=== PATIENT | female | born 1930 | race Caucasian/White ===

== ENCOUNTER 2017-09-23 01:52 | Inpatient (IN) | payer MEDICARE, OTHER ==
[2017-09-23] MEDS: SOD CHLORIDE 0.9% 500 ML IV (02:30)
[2017-09-23 03:37] LABS: ADD MAN DIFF? NO
[2017-09-23 03:59] LABS: WHITE BLOOD COUNT 11.1 10^3/ul (4.8-10.8)
[2017-09-23 03:59] LABS: BASOPHIL # 0.1 10^3/ul (0.0-0.1); BASOPHILS % 0.7 % (0.0-2.0); HEMATOCRIT 25.8 % (37.0-47.0); HEMOGLOBIN 8.6 g/dl (12.0-16.0); LYMPHOCYTES # 1.6 10^3/ul (0.8-2.9); LYMPHOCYTES % 14.8 % (15.0-51.0); MEAN CORPUSCULAR HEMOGLOBIN 31.4 pg (29.0-33.0); MEAN CORPUSCULAR HGB CONC 33.3 g/dl (32.0-37.0); MEAN CORPUSCULAR VOLUME 94.2 fl (82.0-101.0); MEAN PLATELET VOLUME 10.4 fl (7.4-10.4); MONOCYTE # 1.1 10^3/ul (0.3-0.9); MONOCYTES % 9.6 % (0.0-11.0); NEUTROPHIL # 8.2 10^3/ul (1.6-7.5); NEUTROPHILS % 74.4 % (39.0-77.0); PLATELET COUNT 396 10^3/UL (140-415); RED BLOOD COUNT 2.74 10^6/ul (4.20-5.40); RED CELL DISTRIBUTION WIDTH 15.5 % (11.5-14.5)
[2017-09-23 04:12] LABS: ALANINE AMINOTRANSFERASE 41 IU/L (13-69); ALBUMIN/GLOBULIN RATIO 0.88; ALKALINE PHOSPHATASE 71 IU/L (42-121); ASPARTATE AMINO TRANSFERASE 29 IU/L (15-46); BILIRUBIN,INDIRECT 0.2 mg/dl (0-1.1); BILIRUBIN,TOTAL 0.2 mg/dl (0.2-1.3); BLOOD UREA NITROGEN 30 mg/dl (7-20); CALCIUM 7.9 mg/dl (8.4-10.2); CHLORIDE 103 mmol/L (97-110); CREATININE 0.73 mg/dl (0.44-1.00); GLUCOSE 123 mg/dl (70-220); LIPASE 60 U/L (23-300); SODIUM 156 mmol/L (135-144); TOTAL PROTEIN 6.4 g/dl (6.1-8.1)
[2017-09-23 04:19] LABS: ADD UMIC YES; UR ASCORBIC ACID 40 mg/dL (NEGATIVE); UR BILIRUBIN (Dip) NEGATIVE (NEGATIVE); UR BLOOD (Dip) NEGATIVE (NEGATIVE); UR CLARITY SLIGHTLY CLOUDY (CLEAR); UR COLOR YELLOW (YELLOW); UR GLUCOSE (Dip) NEGATIVE (NEGATIVE); UR KETONES (Dip) NEGATIVE (NEGATIVE); UR LEUKOCYTE ESTERASE (Dip) NEGATIVE Leu/ul (NEGATIVE); UR NITRITE (Dip) NEGATIVE (NEGATIVE); UR RBC 1 /HPF (0-5); UR SPECIFIC GRAVITY (Dip) 1.021 (1.003-1.030); UR SQUAMOUS EPITHELIAL CELL FEW /HPF (FEW); UR TOTAL PROTEIN (Dip) 1+ mg/dl (NEGATIVE); UR UROBILINOGEN (Dip) 1+ mg/dL (NEGATIVE); UR WBC 4 /HPF (0-5)
[2017-09-23 04:26] LABS: ANION GAP 14 (8-16)
[2017-09-23 04:28] LABS: CARBON DIOXIDE 41 mmol/L (21-31); POTASSIUM 1.8 mmol/L (3.5-5.1)
[2017-09-23] MEDS ORDERED: POTASSIUM CHLORIDE (SR) 20 MEQ TAB PO (04:38)
[2017-09-23] MEDS ORDERED: ONDANSETRON 4 MG INJ IV (05:00)
[2017-09-23] MEDS ORDERED: ACETAMINOPHEN 325 MG TAB PO (05:00)
[2017-09-23] MEDS: MAGNESIUM SULFATE 2 GM/50 ML 50 ML IVPB (05:03)
[2017-09-23] MEDS: SOD CHLORIDE 0.9% 1,000 ML IV (05:03)
[2017-09-23] MEDS: POTASSIUM CHLORIDE 20 MEQ POWDER FOR ORAL SOLN GTB (05:03)
[2017-09-23] MEDS: POTASSIUM CHLORIDE 50 ML IVPB ×5 (05:27→17:30)
[2017-09-23] MEDS: ACETAMINOPHEN 325 MG TAB GTB ×2 (13:30→21:00)
[2017-09-23] MEDS: D5W + KCL 20 MEQ 1,000 ML IV (14:00)
[2017-09-23 14:41] LABS: AMMONIA < 9 umol/l (9-30)
[2017-09-23 14:41] LABS: ANION GAP 13 (8-16); BLOOD UREA NITROGEN 28 mg/dl (7-20); CALCIUM 7.5 mg/dl (8.4-10.2); CARBON DIOXIDE 36 mmol/L (21-31); CHLORIDE 109 mmol/L (97-110); CREATININE 0.66 mg/dl (0.44-1.00); GLUCOSE 105 mg/dl (70-220); SODIUM 155 mmol/L (135-144)
[2017-09-23 14:45] LABS: POTASSIUM 2.9 mmol/L (3.5-5.1)
[2017-09-23 17:48] LABS: ANION GAP 9 (8-16); BLOOD UREA NITROGEN 28 mg/dl (7-20); CALCIUM 7.7 mg/dl (8.4-10.2); CARBON DIOXIDE 38 mmol/L (21-31); CHLORIDE 110 mmol/L (97-110); CREATININE 0.58 mg/dl (0.44-1.00); GLUCOSE 96 mg/dl (70-220); SODIUM 154 mmol/L (135-144)
[2017-09-23 17:51] LABS: POTASSIUM 2.7 mmol/L (3.5-5.1)
[2017-09-23] MEDS: FERROUS SULFATE (EC) 325 MG TAB PO (21:00)
[2017-09-23] MEDS: DOCUSATE SODIUM 100 MG CAP PO (21:00)
[2017-09-23] MEDS: ASCORBIC ACID 500 MG TAB GTB (21:00)
[2017-09-23] MEDS: ATORVASTATIN 40 MG TAB GTB (21:00)
[2017-09-23] MEDS ORDERED: VITAMIN A & D 5 GM OINT PACKET TOP (23:33)
[2017-09-24] MEDS: ACETAMINOPHEN 325 MG TAB GTB ×4 (01:30→21:35)
[2017-09-24] MEDS: D5W + KCL 20 MEQ 1,000 ML IV ×3 (04:20→21:36)
[2017-09-24] MEDS: LEVOTHYROXINE 25 MCG TAB PO (05:50)
[2017-09-24 07:30] LABS: ALANINE AMINOTRANSFERASE 36 IU/L (13-69); ALBUMIN 2.6 g/dl (3.3-4.9); ALBUMIN/GLOBULIN RATIO 0.76; ALKALINE PHOSPHATASE 62 IU/L (42-121); ANION GAP 13 (8-16); ASPARTATE AMINO TRANSFERASE 27 IU/L (15-46); BILIRUBIN,INDIRECT 0.3 mg/dl (0-1.1); BILIRUBIN,TOTAL 0.3 mg/dl (0.2-1.3); BLOOD UREA NITROGEN 26 mg/dl (7-20); CALCIUM 7.8 mg/dl (8.4-10.2); CARBON DIOXIDE 34 mmol/L (21-31); CHLORIDE 109 mmol/L (97-110); CREATININE 0.62 mg/dl (0.44-1.00); GLUCOSE 115 mg/dl (70-220); MAGNESIUM 2.9 mg/dl (1.7-2.5); SODIUM 153 mmol/L (135-144)
[2017-09-24 07:42] LABS: POTASSIUM 2.9 mmol/L (3.5-5.1)
[2017-09-24] MEDS: POTASSIUM CHLORIDE 20 MEQ POWDER FOR ORAL SOLN GTB (08:00)
[2017-09-24] MEDS: MULTIVITAMINS THERAPEUTIC TAB GTB (09:00)
[2017-09-24] MEDS: CHOLECALCIFEROL 2,000 UNIT CAP PO (09:00)
[2017-09-24] MEDS: DOCUSATE SODIUM 100 MG CAP PO ×3 (09:00→21:35)
[2017-09-24] MEDS: FERROUS SULFATE (EC) 325 MG TAB PO ×2 (09:00→21:34)
[2017-09-24] MEDS: MEMANTINE 5 MG TAB PO (09:00)
[2017-09-24] MEDS: ZINC SULFATE 220 MG CAP GTB (09:00)
[2017-09-24] MEDS: DONEPEZIL 5 MG TAB PO (09:00)
[2017-09-24] MEDS: ASCORBIC ACID 500 MG TAB GTB ×2 (09:00→21:35)
[2017-09-24] MEDS: POTASSIUM CHLORIDE 20 MEQ POWDER FOR ORAL SOLN NGT (10:17)
[2017-09-24] MEDS: POTASSIUM CHLORIDE 10 MEQ in DEXTROSE 5% 50 ML IVPB ×6 (11:43→19:02)
[2017-09-24] MEDS: morphine 2 MG INJ IV (14:41)
[2017-09-24 21:06] LABS: ANION GAP 10 (8-16); BLOOD UREA NITROGEN 26 mg/dl (7-20); CALCIUM 7.6 mg/dl (8.4-10.2); CARBON DIOXIDE 32 mmol/L (21-31); CHLORIDE 109 mmol/L (97-110); GLUCOSE 85 mg/dl (70-220); POTASSIUM 3.9 mmol/L (3.5-5.1); SODIUM 147 mmol/L (135-144)
[2017-09-24] MEDS: ATORVASTATIN 40 MG TAB GTB (21:35)
[2017-09-25] MEDS: ACETAMINOPHEN 325 MG TAB GTB ×4 (01:30→21:47)
[2017-09-25] MEDS: LEVOTHYROXINE 25 MCG TAB PO (05:22)
[2017-09-25] MEDS: D5W + KCL 20 MEQ 1,000 ML IV ×2 (06:00→08:28)
[2017-09-25 07:03] LABS: ADD MAN DIFF? NO
[2017-09-25 07:07] LABS: BASOPHIL # 0.1 10^3/ul (0.0-0.1); BASOPHILS % 0.4 % (0.0-2.0); HEMOGLOBIN 8.9 g/dl (12.0-16.0); LYMPHOCYTES # 2.2 10^3/ul (0.8-2.9); LYMPHOCYTES % 15.7 % (15.0-51.0); MEAN CORPUSCULAR HEMOGLOBIN 30.6 pg (29.0-33.0); MEAN CORPUSCULAR HGB CONC 31.8 g/dl (32.0-37.0); MEAN CORPUSCULAR VOLUME 96.2 fl (82.0-101.0); MEAN PLATELET VOLUME 10.4 fl (7.4-10.4); MONOCYTE # 0.8 10^3/ul (0.3-0.9); MONOCYTES % 5.5 % (0.0-11.0); NEUTROPHIL # 10.7 10^3/ul (1.6-7.5); PLATELET COUNT 399 10^3/UL (140-415); RED BLOOD COUNT 2.91 10^6/ul (4.20-5.40); RED CELL DISTRIBUTION WIDTH 14.7 % (11.5-14.5)
[2017-09-25 07:07] LABS: WHITE BLOOD COUNT 13.7 10^3/ul (4.8-10.8)
[2017-09-25 08:06] LABS: ANION GAP 12 (8-16); BLOOD UREA NITROGEN 26 mg/dl (7-20); CALCIUM 7.5 mg/dl (8.4-10.2); CARBON DIOXIDE 29 mmol/L (21-31); CHLORIDE 107 mmol/L (97-110); CREATININE 0.59 mg/dl (0.44-1.00); GLUCOSE 105 mg/dl (70-220); POTASSIUM 3.3 mmol/L (3.5-5.1); SODIUM 145 mmol/L (135-144)
[2017-09-25] MEDS: CHOLECALCIFEROL 2,000 UNIT CAP PO (08:26)
[2017-09-25] MEDS: ZINC SULFATE 220 MG CAP GTB (08:27)
[2017-09-25] MEDS: MEMANTINE 5 MG TAB PO (08:27)
[2017-09-25] MEDS: DOCUSATE SODIUM 100 MG CAP PO ×2 (08:27→21:00)
[2017-09-25] MEDS: FERROUS SULFATE (EC) 325 MG TAB PO ×2 (08:27→21:47)
[2017-09-25] MEDS: MULTIVITAMINS THERAPEUTIC TAB GTB (08:27)
[2017-09-25] MEDS: DONEPEZIL 5 MG TAB PO (08:27)
[2017-09-25] MEDS: ASCORBIC ACID 500 MG TAB GTB ×2 (08:27→21:47)
[2017-09-25] MEDS: POTASSIUM CHLORIDE (SR) 20 MEQ TAB PO (12:13)
[2017-09-25] MEDS: ATORVASTATIN 40 MG TAB GTB (21:47)
[2017-09-26] MEDS: D5W + KCL 20 MEQ 1,000 ML IV ×2 (00:18→13:46)
[2017-09-26] MEDS: LEVOTHYROXINE 25 MCG TAB PO (05:01)
[2017-09-26] MEDS: ACETAMINOPHEN 325 MG TAB GTB ×4 (05:01→21:20)
[2017-09-26] MEDS: MULTIVITAMINS THERAPEUTIC TAB GTB (08:30)
[2017-09-26] MEDS: FERROUS SULFATE (EC) 325 MG TAB PO ×2 (08:30→21:20)
[2017-09-26] MEDS: DONEPEZIL 5 MG TAB PO (08:30)
[2017-09-26] MEDS: CHOLECALCIFEROL 2,000 UNIT CAP PO (08:30)
[2017-09-26] MEDS: MEMANTINE 5 MG TAB PO (08:31)
[2017-09-26] MEDS: ZINC SULFATE 220 MG CAP GTB (08:31)
[2017-09-26] MEDS: DOCUSATE SODIUM 100 MG CAP PO ×2 (08:31→21:20)
[2017-09-26] MEDS: ASCORBIC ACID 500 MG TAB GTB ×2 (08:31→21:20)
[2017-09-26 08:57] LABS: ADD MAN DIFF? NO
[2017-09-26 09:16] LABS: BASOPHILS % 0.2 % (0.0-2.0); HEMATOCRIT 28.1 % (37.0-47.0); LYMPHOCYTES # 1.8 10^3/ul (0.8-2.9); LYMPHOCYTES % 17.7 % (15.0-51.0); MEAN CORPUSCULAR HEMOGLOBIN 30.4 pg (29.0-33.0); MEAN CORPUSCULAR VOLUME 94.9 fl (82.0-101.0); MEAN PLATELET VOLUME 10.3 fl (7.4-10.4); MONOCYTE # 0.6 10^3/ul (0.3-0.9); NEUTROPHIL # 7.7 10^3/ul (1.6-7.5); NEUTROPHILS % 75.6 % (39.0-77.0); PLATELET COUNT 404 10^3/UL (140-415); RED BLOOD COUNT 2.96 10^6/ul (4.20-5.40); RED CELL DISTRIBUTION WIDTH 14.6 % (11.5-14.5)
[2017-09-26 09:16] LABS: WHITE BLOOD COUNT 10.2 10^3/ul (4.8-10.8)
[2017-09-26 09:26] LABS: ANION GAP 12 (8-16); BLOOD UREA NITROGEN 17 mg/dl (7-20); CALCIUM 7.9 mg/dl (8.4-10.2); CARBON DIOXIDE 30 mmol/L (21-31); CHLORIDE 103 mmol/L (97-110); CREATININE 0.65 mg/dl (0.44-1.00); GLUCOSE 85 mg/dl (70-220); POTASSIUM 3.1 mmol/L (3.5-5.1); SODIUM 142 mmol/L (135-144)
[2017-09-26] MEDS ORDERED: POTASSIUM CHLORIDE 20 MEQ in DEXTROSE 5% 100 ML IVPB (15:30)
[2017-09-26] MEDS: POTASSIUM CHLORIDE 50 ML IVPB ×2 (15:33→18:45)
[2017-09-26] MEDS: ATORVASTATIN 40 MG TAB GTB (21:20)
[2017-09-26] MEDS: morphine 2 MG INJ IV (23:53)
[2017-09-27] MEDS: ACETAMINOPHEN 325 MG TAB GTB ×4 (03:25→18:10)
[2017-09-27] MEDS: D5W + KCL 20 MEQ 1,000 ML IV ×3 (06:46→18:10)
[2017-09-27] MEDS: LEVOTHYROXINE 25 MCG TAB PO (06:46)
[2017-09-27] MEDS: DONEPEZIL 5 MG TAB PO (09:11)
[2017-09-27] MEDS: ZINC SULFATE 220 MG CAP GTB (09:11)
[2017-09-27] MEDS: FERROUS SULFATE (EC) 325 MG TAB PO ×2 (09:11→20:54)
[2017-09-27] MEDS: CHOLECALCIFEROL 2,000 UNIT CAP PO (09:12)
[2017-09-27] MEDS: MULTIVITAMINS THERAPEUTIC TAB GTB (09:12)
[2017-09-27] MEDS: DOCUSATE SODIUM 100 MG CAP PO ×2 (09:12→20:54)
[2017-09-27] MEDS: MEMANTINE 5 MG TAB PO (09:13)
[2017-09-27] MEDS: ASCORBIC ACID 500 MG TAB GTB ×2 (09:13→20:54)
[2017-09-27] MEDS ORDERED: POTASSIUM CHLORIDE 20 MEQ in DEXTROSE 5% 100 ML IVPB (09:30)
[2017-09-27] MEDS: POTASSIUM CHLORIDE 50 ML IVPB ×2 (11:00→12:34)
[2017-09-27] MEDS: ATORVASTATIN 40 MG TAB GTB (20:54)
[2017-09-28] MEDS: ACETAMINOPHEN 325 MG TAB GTB ×4 (01:09→18:28)
[2017-09-28] MEDS: D5W + KCL 20 MEQ 1,000 ML IV ×2 (04:00→13:37)
[2017-09-28] MEDS: LEVOTHYROXINE 25 MCG TAB PO (06:31)
[2017-09-28] MEDS: CHOLECALCIFEROL 2,000 UNIT CAP PO (08:43)
[2017-09-28] MEDS: MEMANTINE 5 MG TAB PO (08:43)
[2017-09-28] MEDS: DONEPEZIL 5 MG TAB PO (08:43)
[2017-09-28] MEDS: MULTIVITAMINS THERAPEUTIC TAB GTB (08:43)
[2017-09-28] MEDS: FERROUS SULFATE (EC) 325 MG TAB PO ×2 (08:43→20:11)
[2017-09-28] MEDS: DOCUSATE SODIUM 100 MG CAP PO ×2 (08:43→21:00)
[2017-09-28] MEDS: ZINC SULFATE 220 MG CAP GTB (08:43)
[2017-09-28] MEDS: ASCORBIC ACID 500 MG TAB GTB ×2 (08:43→20:11)
[2017-09-28] MEDS ORDERED: POTASSIUM CHLORIDE 30 MEQ in DEXTROSE 5% 250 ML IVPB (15:00)
[2017-09-28] MEDS: POTASSIUM CHLORIDE 50 ML IVPB ×3 (15:27→18:28)
[2017-09-28] MEDS ORDERED: PEG/ELECTROLYTES 4L BTL PEG (15:30)
[2017-09-28 16:28] LABS: ADD MAN DIFF? NO
[2017-09-28 16:32] LABS: WHITE BLOOD COUNT 8.3 10^3/ul (4.8-10.8)
[2017-09-28 16:32] LABS: BASOPHILS % 0.4 % (0.0-2.0); HEMATOCRIT 26.2 % (37.0-47.0); HEMOGLOBIN 8.4 g/dl (12.0-16.0); LYMPHOCYTES % 24.1 % (15.0-51.0); MEAN CORPUSCULAR HEMOGLOBIN 30.7 pg (29.0-33.0); MEAN CORPUSCULAR HGB CONC 32.1 g/dl (32.0-37.0); MEAN CORPUSCULAR VOLUME 95.6 fl (82.0-101.0); MEAN PLATELET VOLUME 10.5 fl (7.4-10.4); MONOCYTE # 0.5 10^3/ul (0.3-0.9); MONOCYTES % 6.4 % (0.0-11.0); NEUTROPHIL # 5.7 10^3/ul (1.6-7.5); NEUTROPHILS % 68.9 % (39.0-77.0); PLATELET COUNT 302 10^3/UL (140-415); RED BLOOD COUNT 2.74 10^6/ul (4.20-5.40); RED CELL DISTRIBUTION WIDTH 15.9 % (11.5-14.5)
[2017-09-28 16:59] LABS: ANION GAP 13 (8-16); BLOOD UREA NITROGEN 13 mg/dl (7-20); CALCIUM 8.1 mg/dl (8.4-10.2); CARBON DIOXIDE 28 mmol/L (21-31); CHLORIDE 106 mmol/L (97-110); CREATININE 0.69 mg/dl (0.44-1.00); GLUCOSE 90 mg/dl (70-220); POTASSIUM 3.6 mmol/L (3.5-5.1); SODIUM 143 mmol/L (135-144)
[2017-09-28] MEDS: PEG/ELECTROLYTES 4L BTL PO (17:01)
[2017-09-28] MEDS: D5W-0.45 NACL + KCL 20 MEQ 1,000 ML IV (17:32)
[2017-09-28] MEDS: ATORVASTATIN 40 MG TAB GTB (20:11)
[2017-09-29] MEDS: ACETAMINOPHEN 325 MG TAB GTB ×4 (02:16→18:23)
[2017-09-29 04:13] LABS: ADD MAN DIFF? NO
[2017-09-29 04:40] LABS: BASOPHILS % 0.4 % (0.0-2.0); HEMATOCRIT 26.1 % (37.0-47.0); HEMOGLOBIN 8.4 g/dl (12.0-16.0); LYMPHOCYTES # 2.2 10^3/ul (0.8-2.9); LYMPHOCYTES % 23.4 % (15.0-51.0); MEAN CORPUSCULAR HEMOGLOBIN 30.5 pg (29.0-33.0); MEAN CORPUSCULAR HGB CONC 32.2 g/dl (32.0-37.0); MEAN CORPUSCULAR VOLUME 94.9 fl (82.0-101.0); MEAN PLATELET VOLUME 10.2 fl (7.4-10.4); MONOCYTE # 0.7 10^3/ul (0.3-0.9); NEUTROPHIL # 6.4 10^3/ul (1.6-7.5); PLATELET COUNT 338 10^3/UL (140-415); RED BLOOD COUNT 2.75 10^6/ul (4.20-5.40); RED CELL DISTRIBUTION WIDTH 15.2 % (11.5-14.5)
[2017-09-29 04:40] LABS: WHITE BLOOD COUNT 9.3 10^3/ul (4.8-10.8)
[2017-09-29 04:49] LABS: POTASSIUM 3.8 mmol/L (3.5-5.1)
[2017-09-29 04:51] LABS: INR 0.98; PROTIME 13.1 Sec (11.9-14.9)
[2017-09-29 04:52] LABS: PARTIAL THROMBOPLASTIN TIME 36.8 Sec (25.0-35.0)
[2017-09-29 04:53] LABS: ALANINE AMINOTRANSFERASE 124 IU/L (13-69); ALBUMIN 2.5 g/dl (3.3-4.9); ALBUMIN/GLOBULIN RATIO 0.78; ALKALINE PHOSPHATASE 238 IU/L (42-121); ANION GAP 13 (8-16); ASPARTATE AMINO TRANSFERASE 62 IU/L (15-46); BILIRUBIN,INDIRECT 0.2 mg/dl (0-1.1); BILIRUBIN,TOTAL 0.2 mg/dl (0.2-1.3); BLOOD UREA NITROGEN 13 mg/dl (7-20); CALCIUM 7.7 mg/dl (8.4-10.2); CARBON DIOXIDE 28 mmol/L (21-31); CHLORIDE 106 mmol/L (97-110); CREATININE 0.63 mg/dl (0.44-1.00); GLUCOSE 86 mg/dl (70-220); SODIUM 143 mmol/L (135-144); TOTAL PROTEIN 5.7 g/dl (6.1-8.1)
[2017-09-29] MEDS: D5W-0.45 NACL + KCL 20 MEQ 1,000 ML IV (05:19)
[2017-09-29] MEDS: LEVOTHYROXINE 25 MCG TAB PO (06:22)
[2017-09-29] MEDS: DOCUSATE SODIUM 100 MG CAP PO ×2 (08:54→21:01)
[2017-09-29] MEDS: ASCORBIC ACID 500 MG TAB GTB ×2 (08:54→21:01)
[2017-09-29] MEDS: ZINC SULFATE 220 MG CAP GTB (08:54)
[2017-09-29] MEDS: DONEPEZIL 5 MG TAB PO (08:54)
[2017-09-29] MEDS: MULTIVITAMINS THERAPEUTIC TAB GTB (08:54)
[2017-09-29] MEDS: MEMANTINE 5 MG TAB PO (08:55)
[2017-09-29] MEDS: CHOLECALCIFEROL 2,000 UNIT CAP PO (08:55)
[2017-09-29] MEDS: FERROUS SULFATE (EC) 325 MG TAB PO ×2 (08:55→21:01)
[2017-09-29] MEDS: LIDOCAINE 100 MG SYRINGE (18:05)
[2017-09-29] MEDS: PROPOFOL 40 ML (18:05)
[2017-09-29] MEDS: ATORVASTATIN 40 MG TAB GTB (21:01)
[2017-09-30] MEDS: ACETAMINOPHEN 325 MG TAB GTB ×4 (01:24→20:36)
[2017-09-30] MEDS: LEVOTHYROXINE 25 MCG TAB PO (06:32)
[2017-09-30] MEDS: ASCORBIC ACID 500 MG TAB GTB ×2 (08:42→20:36)
[2017-09-30] MEDS: DOCUSATE SODIUM 100 MG CAP PO ×2 (08:43→20:36)
[2017-09-30] MEDS: FERROUS SULFATE (EC) 325 MG TAB PO ×2 (08:43→20:36)
[2017-09-30] MEDS: MEMANTINE 5 MG TAB PO (08:43)
[2017-09-30] MEDS: DONEPEZIL 5 MG TAB PO (08:47)
[2017-09-30] MEDS: ZINC SULFATE 220 MG CAP GTB (08:47)
[2017-09-30] MEDS: MULTIVITAMINS THERAPEUTIC TAB GTB (08:48)
[2017-09-30] MEDS: CHOLECALCIFEROL 1,000 UNIT TAB GTB (13:38)
[2017-09-30] MEDS: ATORVASTATIN 40 MG TAB GTB (20:36)
[2017-10-01] MEDS: ACETAMINOPHEN 325 MG TAB GTB ×4 (01:40→18:38)
[2017-10-01 05:23] LABS: ADD MAN DIFF? NO
[2017-10-01 05:31] LABS: WHITE BLOOD COUNT 8.8 10^3/ul (4.8-10.8)
[2017-10-01 05:31] LABS: BASOPHILS % 0.2 % (0.0-2.0); HEMATOCRIT 25.7 % (37.0-47.0); HEMOGLOBIN 8.3 g/dl (12.0-16.0); LYMPHOCYTES # 1.9 10^3/ul (0.8-2.9); MEAN CORPUSCULAR HEMOGLOBIN 30.4 pg (29.0-33.0); MEAN CORPUSCULAR HGB CONC 32.3 g/dl (32.0-37.0); MEAN CORPUSCULAR VOLUME 94.1 fl (82.0-101.0); MEAN PLATELET VOLUME 10.1 fl (7.4-10.4); MONOCYTE # 0.8 10^3/ul (0.3-0.9); MONOCYTES % 9.2 % (0.0-11.0); NEUTROPHIL # 6.1 10^3/ul (1.6-7.5); NEUTROPHILS % 69.4 % (39.0-77.0); PLATELET COUNT 318 10^3/UL (140-415); RED BLOOD COUNT 2.73 10^6/ul (4.20-5.40); RED CELL DISTRIBUTION WIDTH 15.1 % (11.5-14.5)
[2017-10-01 06:01] LABS: ANION GAP 14 (8-16); BLOOD UREA NITROGEN 14 mg/dl (7-20); CALCIUM 8.2 mg/dl (8.4-10.2); CARBON DIOXIDE 28 mmol/L (21-31); CHLORIDE 105 mmol/L (97-110); CREATININE 0.63 mg/dl (0.44-1.00); GLUCOSE 94 mg/dl (70-220); POTASSIUM 3.3 mmol/L (3.5-5.1); SODIUM 144 mmol/L (135-144)
[2017-10-01] MEDS: morphine 2 MG INJ IV (06:06)
[2017-10-01] MEDS: MULTIVITAMINS THERAPEUTIC TAB GTB (09:36)
[2017-10-01] MEDS: FERROUS SULFATE (EC) 325 MG TAB PO ×2 (09:37→20:57)
[2017-10-01] MEDS: CHOLECALCIFEROL 1,000 UNIT TAB GTB (09:37)
[2017-10-01] MEDS: DONEPEZIL 5 MG TAB PO (09:38)
[2017-10-01] MEDS: ZINC SULFATE 220 MG CAP GTB (09:38)
[2017-10-01] MEDS: LEVOTHYROXINE 25 MCG TAB PO (09:38)
[2017-10-01] MEDS: DOCUSATE SODIUM 100 MG CAP PO ×2 (09:38→21:00)
[2017-10-01] MEDS: ASCORBIC ACID 500 MG TAB GTB ×2 (09:38→20:57)
[2017-10-01] MEDS: MEMANTINE 5 MG TAB PO (09:38)
[2017-10-01] MEDS: ATORVASTATIN 40 MG TAB GTB (20:57)
[2017-10-02] MEDS: ACETAMINOPHEN 325 MG TAB GTB ×3 (02:35→13:34)
[2017-10-02 07:04] LABS: ANION GAP 14 (8-16); BLOOD UREA NITROGEN 14 mg/dl (7-20); CALCIUM 7.7 mg/dl (8.4-10.2); CARBON DIOXIDE 27 mmol/L (21-31); CHLORIDE 105 mmol/L (97-110); GLUCOSE 114 mg/dl (70-220); POTASSIUM 3.3 mmol/L (3.5-5.1); SODIUM 143 mmol/L (135-144)
[2017-10-02] MEDS: MEMANTINE 5 MG TAB PO (08:44)
[2017-10-02] MEDS: ASCORBIC ACID 500 MG TAB GTB ×2 (08:44→20:23)
[2017-10-02] MEDS: CHOLECALCIFEROL 1,000 UNIT TAB GTB (08:44)
[2017-10-02] MEDS: MULTIVITAMINS THERAPEUTIC TAB GTB (08:44)
[2017-10-02] MEDS: DONEPEZIL 5 MG TAB PO (08:45)
[2017-10-02] MEDS: DOCUSATE SODIUM 100 MG CAP PO (08:46)
[2017-10-02] MEDS: LEVOTHYROXINE 25 MCG TAB PO (08:46)
[2017-10-02] MEDS: FERROUS SULFATE (EC) 325 MG TAB PO (08:46)
[2017-10-02] MEDS: ZINC SULFATE 220 MG CAP GTB (08:46)
[2017-10-02] MEDS: POTASSIUM CHLORIDE (SR) 20 MEQ TAB PO (16:57)
[2017-10-02] MEDS: POTASSIUM CHLORIDE 20 MEQ POWDER FOR ORAL SOLN GTB (17:25)
[2017-10-02 17:33] LABS: ADD MAN DIFF? NO
[2017-10-02 17:36] LABS: WHITE BLOOD COUNT 9.7 10^3/ul (4.8-10.8)
[2017-10-02 17:36] LABS: BASOPHILS % 0.4 % (0.0-2.0); HEMATOCRIT 24.9 % (37.0-47.0); HEMOGLOBIN 8.1 g/dl (12.0-16.0); LYMPHOCYTES # 1.5 10^3/ul (0.8-2.9); LYMPHOCYTES % 15.9 % (15.0-51.0); MEAN CORPUSCULAR HEMOGLOBIN 30.7 pg (29.0-33.0); MEAN CORPUSCULAR HGB CONC 32.5 g/dl (32.0-37.0); MEAN CORPUSCULAR VOLUME 94.3 fl (82.0-101.0); MONOCYTE # 0.9 10^3/ul (0.3-0.9); MONOCYTES % 9.4 % (0.0-11.0); NEUTROPHIL # 7.2 10^3/ul (1.6-7.5); PLATELET COUNT 246 10^3/UL (140-415); RED BLOOD COUNT 2.64 10^6/ul (4.20-5.40); RED CELL DISTRIBUTION WIDTH 15.2 % (11.5-14.5)
[2017-10-02] MEDS: FERROUS SULFATE 60 MG/ML 5ML CUP GTB (20:23)
[2017-10-02] MEDS: ATORVASTATIN 40 MG TAB GTB (20:23)
[2017-10-02] MEDS: DOCUSATE SODIUM 10 MG/ML (10ML CUP) GTB (20:23)
[2017-10-02] MEDS: SOD CHLORIDE 0.9% 1,000 ML IV (21:29)
[2017-10-03] MEDS: LEVOTHYROXINE 25 MCG TAB PO (04:23)
[2017-10-03] MEDS: MULTIVITAMINS THERAPEUTIC TAB GTB (08:18)
[2017-10-03] MEDS: DOCUSATE SODIUM 10 MG/ML (10ML CUP) GTB ×2 (08:18→21:00)
[2017-10-03] MEDS: FERROUS SULFATE 60 MG/ML 5ML CUP GTB ×2 (08:18→21:00)
[2017-10-03] MEDS: CHOLECALCIFEROL 1,000 UNIT TAB GTB (08:18)
[2017-10-03] MEDS: ASCORBIC ACID 500 MG TAB GTB ×2 (08:18→21:00)
[2017-10-03] MEDS: ZINC SULFATE 220 MG CAP GTB (08:19)
[2017-10-03] MEDS: MEMANTINE 5 MG TAB PO (08:19)
[2017-10-03] MEDS: DONEPEZIL 5 MG TAB PO (08:19)
[2017-10-03] MEDS: SOD CHLORIDE 0.9% 1,000 ML IV (10:32)
[2017-10-03 12:34] LABS: ANION GAP 12 (8-16); BLOOD UREA NITROGEN 13 mg/dl (7-20); CALCIUM 7.7 mg/dl (8.4-10.2); CARBON DIOXIDE 27 mmol/L (21-31); CHLORIDE 106 mmol/L (97-110); CREATININE 0.61 mg/dl (0.44-1.00); GLUCOSE 75 mg/dl (70-220); POTASSIUM 3.6 mmol/L (3.5-5.1); SODIUM 141 mmol/L (135-144)
[2017-10-03] MEDS: ATORVASTATIN 40 MG TAB GTB (21:00)
[2017-10-03] MEDS: POTASSIUM CHLORIDE 10 MEQ in SOD CHLORIDE 0.9% 1,000 ML IV (21:33)
[2017-10-03] MEDS: D5W-0.45 NACL + KCL 20 MEQ 1,000 ML IV (23:21)
[2017-10-04] MEDS: LEVOTHYROXINE 25 MCG TAB PO (06:25)
[2017-10-04 07:08] LABS: ANION GAP 12 (8-16); BLOOD UREA NITROGEN 13 mg/dl (7-20); CALCIUM 7.7 mg/dl (8.4-10.2); CARBON DIOXIDE 26 mmol/L (21-31); CHLORIDE 106 mmol/L (97-110); CREATININE 0.57 mg/dl (0.44-1.00); GLUCOSE 73 mg/dl (70-220); POTASSIUM 3.1 mmol/L (3.5-5.1); SODIUM 141 mmol/L (135-144)
[2017-10-04 07:09] LABS: MAGNESIUM 1.9 mg/dl (1.7-2.5)
[2017-10-04 07:09] LABS: PHOSPHORUS 3.8 mg/dl (2.5-4.9)
[2017-10-04] MEDS: MULTIVITAMINS THERAPEUTIC TAB GTB (08:59)
[2017-10-04] MEDS: FERROUS SULFATE 60 MG/ML 5ML CUP GTB ×2 (08:59→21:21)
[2017-10-04] MEDS: ASCORBIC ACID 500 MG TAB GTB ×2 (08:59→21:21)
[2017-10-04] MEDS: DOCUSATE SODIUM 10 MG/ML (10ML CUP) GTB ×2 (08:59→21:21)
[2017-10-04] MEDS: CHOLECALCIFEROL 1,000 UNIT TAB GTB (09:00)
[2017-10-04] MEDS: DONEPEZIL 5 MG TAB PO (09:00)
[2017-10-04] MEDS: MEMANTINE 5 MG TAB PO (09:00)
[2017-10-04] MEDS: ZINC SULFATE 220 MG CAP GTB (09:00)
[2017-10-04] MEDS: POTASSIUM CHLORIDE 10 MEQ in SOD CHLORIDE 0.9% 1,000 ML IV (10:24)
[2017-10-04] MEDS: D5W-0.45 NACL + KCL 20 MEQ 1,000 ML IV (13:00)
[2017-10-04] MEDS ORDERED: POTASSIUM CHLORIDE 30 MEQ in SOD CHLORIDE 0.9% 150 ML IVPB (15:30)
[2017-10-04] MEDS: POTASSIUM CHLORIDE 50 ML IVPB ×3 (15:39→17:30)
[2017-10-04] MEDS ORDERED: PROPOFOL 40 ML (16:27)
[2017-10-04] MEDS: ATORVASTATIN 40 MG TAB GTB (21:21)
[2017-10-04] MEDS: ACETAMINOPHEN 650MG/20.3ML CUP PO (21:21)
[2017-10-04] MEDS: morphine 2 MG INJ IV (21:58)
[2017-10-05] MEDS: D5W-0.45 NACL + KCL 20 MEQ 1,000 ML IV ×2 (03:36→13:56)
[2017-10-05] MEDS: LEVOTHYROXINE 25 MCG TAB PO (05:07)
[2017-10-05] MEDS: ASCORBIC ACID 500 MG TAB GTB ×2 (09:32→20:39)
[2017-10-05] MEDS: CHOLECALCIFEROL 1,000 UNIT TAB GTB (09:32)
[2017-10-05] MEDS: MEMANTINE 5 MG TAB PO (09:32)
[2017-10-05] MEDS: ZINC SULFATE 220 MG CAP GTB (09:32)
[2017-10-05] MEDS: DONEPEZIL 5 MG TAB PO (09:32)
[2017-10-05] MEDS: FERROUS SULFATE 60 MG/ML 5ML CUP GTB ×2 (09:32→20:39)
[2017-10-05] MEDS: DOCUSATE SODIUM 10 MG/ML (10ML CUP) GTB ×2 (09:32→20:40)
[2017-10-05] MEDS: MULTIVITAMINS THERAPEUTIC TAB GTB (09:32)
[2017-10-05] MEDS: ATORVASTATIN 40 MG TAB GTB (20:39)
[2017-10-05] MEDS: FLUOCINONIDE 0.05% 15 GM CR TOP (20:41)
[2017-10-05] MEDS: morphine 2 MG INJ IV (21:25)
[2017-10-06] MEDS: D5W-0.45 NACL + KCL 20 MEQ 1,000 ML IV ×2 (05:05→22:52)
[2017-10-06 05:36] LABS: ADD MAN DIFF? NO
[2017-10-06 05:46] LABS: BASOPHIL # 0.1 10^3/ul (0.0-0.1); BASOPHILS % 0.7 % (0.0-2.0); HEMATOCRIT 23.7 % (37.0-47.0); LYMPHOCYTES # 2.1 10^3/ul (0.8-2.9); LYMPHOCYTES % 28.3 % (15.0-51.0); MEAN CORPUSCULAR HEMOGLOBIN 30.8 pg (29.0-33.0); MEAN CORPUSCULAR HGB CONC 33.8 g/dl (32.0-37.0); MEAN CORPUSCULAR VOLUME 91.2 fl (82.0-101.0); MEAN PLATELET VOLUME 9.8 fl (7.4-10.4); MONOCYTE # 0.8 10^3/ul (0.3-0.9); MONOCYTES % 10.7 % (0.0-11.0); NEUTROPHIL # 4.4 10^3/ul (1.6-7.5); PLATELET COUNT 299 10^3/UL (140-415); RED CELL DISTRIBUTION WIDTH 14.6 % (11.5-14.5)
[2017-10-06 05:46] LABS: WHITE BLOOD COUNT 7.3 10^3/ul (4.8-10.8)
[2017-10-06 06:01] LABS: ANION GAP 12 (8-16); BLOOD UREA NITROGEN 9 mg/dl (7-20); CALCIUM 7.9 mg/dl (8.4-10.2); CARBON DIOXIDE 27 mmol/L (21-31); CHLORIDE 107 mmol/L (97-110); CREATININE 0.58 mg/dl (0.44-1.00); GLUCOSE 99 mg/dl (70-220); SODIUM 143 mmol/L (135-144)
[2017-10-06] MEDS: LEVOTHYROXINE 25 MCG TAB PO (06:02)
[2017-10-06 06:20] LABS: POTASSIUM 2.8 mmol/L (3.5-5.1)
[2017-10-06] MEDS: FERROUS SULFATE 60 MG/ML 5ML CUP GTB ×2 (08:11→20:56)
[2017-10-06] MEDS: DOCUSATE SODIUM 10 MG/ML (10ML CUP) GTB ×2 (08:11→20:56)
[2017-10-06] MEDS: POTASSIUM CHLORIDE 20 MEQ POWDER FOR ORAL SOLN GTB ×2 (08:11→11:32)
[2017-10-06] MEDS: DONEPEZIL 5 MG TAB PO (08:12)
[2017-10-06] MEDS: MEMANTINE 5 MG TAB PO (08:12)
[2017-10-06] MEDS: ASCORBIC ACID 500 MG TAB GTB ×2 (08:12→20:56)
[2017-10-06] MEDS: CHOLECALCIFEROL 1,000 UNIT TAB GTB (08:12)
[2017-10-06] MEDS: MULTIVITAMINS THERAPEUTIC TAB GTB (08:12)
[2017-10-06] MEDS: ZINC SULFATE 220 MG CAP GTB (08:12)
[2017-10-06] MEDS ORDERED: POTASSIUM CHLORIDE 20 MEQ in DEXTROSE 5% 100 ML IVPB (16:30)
[2017-10-06] MEDS: POTASSIUM CHLORIDE 50 ML IVPB ×2 (18:50→20:56)
[2017-10-06] MEDS: ATORVASTATIN 40 MG TAB GTB (20:56)
[2017-10-06] MEDS: morphine 2 MG INJ IV (22:53)
[2017-10-06] MEDS ORDERED: VITAMIN A & D 5 GM OINT PACKET TOP (23:17)
[2017-10-07 05:53] LABS: ADD MAN DIFF? NO
[2017-10-07 05:56] LABS: BASOPHIL # 0.1 10^3/ul (0.0-0.1); BASOPHILS % 0.6 % (0.0-2.0); HEMOGLOBIN 8.3 g/dl (12.0-16.0); LYMPHOCYTES % 23.2 % (15.0-51.0); MEAN CORPUSCULAR HEMOGLOBIN 30.2 pg (29.0-33.0); MEAN CORPUSCULAR HGB CONC 31.9 g/dl (32.0-37.0); MEAN CORPUSCULAR VOLUME 94.5 fl (82.0-101.0); MEAN PLATELET VOLUME 9.7 fl (7.4-10.4); MONOCYTE # 0.7 10^3/ul (0.3-0.9); MONOCYTES % 8.7 % (0.0-11.0); NEUTROPHIL # 5.7 10^3/ul (1.6-7.5); NEUTROPHILS % 67.3 % (39.0-77.0); PLATELET COUNT 300 10^3/UL (140-415); RED BLOOD COUNT 2.75 10^6/ul (4.20-5.40); RED CELL DISTRIBUTION WIDTH 14.6 % (11.5-14.5)
[2017-10-07 05:56] LABS: WHITE BLOOD COUNT 8.5 10^3/ul (4.8-10.8)
[2017-10-07] MEDS: LEVOTHYROXINE 25 MCG TAB PO (06:25)
[2017-10-07 06:26] LABS: ANION GAP 12 (8-16); BLOOD UREA NITROGEN 9 mg/dl (7-20); CALCIUM 8.3 mg/dl (8.4-10.2); CARBON DIOXIDE 27 mmol/L (21-31); CHLORIDE 107 mmol/L (97-110); CREATININE 0.53 mg/dl (0.44-1.00); GLUCOSE 121 mg/dl (70-220); POTASSIUM 4.3 mmol/L (3.5-5.1); SODIUM 142 mmol/L (135-144)
[2017-10-07 08:25] LABS: FREE T4 (FREE THYROXINE) 0.99 ng/dl (0.85-1.93)
[2017-10-07] MEDS: MEMANTINE 5 MG TAB PO (08:43)
[2017-10-07] MEDS: DOCUSATE SODIUM 10 MG/ML (10ML CUP) GTB ×2 (08:43→21:19)
[2017-10-07] MEDS: ZINC SULFATE 220 MG CAP GTB (08:43)
[2017-10-07] MEDS: MULTIVITAMINS THERAPEUTIC TAB GTB (08:43)
[2017-10-07] MEDS: DONEPEZIL 5 MG TAB PO (08:43)
[2017-10-07] MEDS: FERROUS SULFATE 60 MG/ML 5ML CUP GTB ×2 (08:43→21:19)
[2017-10-07] MEDS: CHOLECALCIFEROL 1,000 UNIT TAB GTB (08:43)
[2017-10-07] MEDS: ASCORBIC ACID 500 MG TAB GTB ×2 (08:43→21:19)
[2017-10-07] MEDS: D5W-0.45 NACL + KCL 20 MEQ 1,000 ML IV ×2 (12:48→16:02)
[2017-10-07] MEDS: morphine 2 MG INJ IV (19:53)
[2017-10-07] MEDS: ATORVASTATIN 40 MG TAB GTB (21:20)
[2017-10-08] MEDS: D5W-0.45 NACL + KCL 20 MEQ 1,000 ML IV (05:36)
[2017-10-08 05:51] LABS: ADD MAN DIFF? NO
[2017-10-08 06:01] LABS: BASOPHIL # 0.1 10^3/ul (0.0-0.1); BASOPHILS % 0.5 % (0.0-2.0); HEMATOCRIT 26.7 % (37.0-47.0); HEMOGLOBIN 8.6 g/dl (12.0-16.0); LYMPHOCYTES # 1.8 10^3/ul (0.8-2.9); LYMPHOCYTES % 16.5 % (15.0-51.0); MEAN CORPUSCULAR HEMOGLOBIN 30.5 pg (29.0-33.0); MEAN CORPUSCULAR HGB CONC 32.2 g/dl (32.0-37.0); MEAN CORPUSCULAR VOLUME 94.7 fl (82.0-101.0); MEAN PLATELET VOLUME 10.1 fl (7.4-10.4); MONOCYTE # 0.9 10^3/ul (0.3-0.9); MONOCYTES % 7.9 % (0.0-11.0); NEUTROPHIL # 8.3 10^3/ul (1.6-7.5); NEUTROPHILS % 74.8 % (39.0-77.0); PLATELET COUNT 313 10^3/UL (140-415); RED BLOOD COUNT 2.82 10^6/ul (4.20-5.40); RED CELL DISTRIBUTION WIDTH 14.8 % (11.5-14.5)
[2017-10-08 06:01] LABS: WHITE BLOOD COUNT 11.1 10^3/ul (4.8-10.8)
[2017-10-08 06:15] LABS: ANION GAP 13 (8-16); BLOOD UREA NITROGEN 9 mg/dl (7-20); CALCIUM 8.2 mg/dl (8.4-10.2); CARBON DIOXIDE 26 mmol/L (21-31); CHLORIDE 105 mmol/L (97-110); CREATININE 0.51 mg/dl (0.44-1.00); GLUCOSE 111 mg/dl (70-220); POTASSIUM 4.1 mmol/L (3.5-5.1); SODIUM 140 mmol/L (135-144)
[2017-10-08] MEDS: LEVOTHYROXINE 25 MCG TAB PO (07:04)
[2017-10-08] MEDS: FERROUS SULFATE 60 MG/ML 5ML CUP GTB ×2 (09:30→22:30)
[2017-10-08] MEDS: DONEPEZIL 5 MG TAB PO (09:31)
[2017-10-08] MEDS: MULTIVITAMINS THERAPEUTIC TAB GTB (09:31)
[2017-10-08] MEDS: CHOLECALCIFEROL 1,000 UNIT TAB GTB (09:31)
[2017-10-08] MEDS: ZINC SULFATE 220 MG CAP GTB (09:31)
[2017-10-08] MEDS: ASCORBIC ACID 500 MG TAB GTB ×2 (09:31→22:31)
[2017-10-08] MEDS: MEMANTINE 5 MG TAB PO (09:31)
[2017-10-08] MEDS: DOCUSATE SODIUM 10 MG/ML (10ML CUP) GTB ×2 (09:31→22:29)
[2017-10-08] MEDS: BISACODYL 10 MG SUPP PR (11:30)
[2017-10-08] MEDS: NA PHOSPHATE/BIPHOS 133 ML ENEMA PR (12:22)
[2017-10-08] MEDS: ATORVASTATIN 40 MG TAB GTB (22:31)
[2017-10-08] MEDS: LACTULOSE 30ML CUP GTB (22:32)
[2017-10-09 06:14] LABS: ADD MAN DIFF? NO
[2017-10-09 06:18] LABS: BASOPHIL # 0.1 10^3/ul (0.0-0.1); BASOPHILS % 0.6 % (0.0-2.0); HEMATOCRIT 24.6 % (37.0-47.0); HEMOGLOBIN 8.1 g/dl (12.0-16.0); LYMPHOCYTES # 1.7 10^3/ul (0.8-2.9); LYMPHOCYTES % 18.9 % (15.0-51.0); MEAN CORPUSCULAR HEMOGLOBIN 30.7 pg (29.0-33.0); MEAN CORPUSCULAR HGB CONC 32.9 g/dl (32.0-37.0); MEAN CORPUSCULAR VOLUME 93.2 fl (82.0-101.0); MEAN PLATELET VOLUME 9.9 fl (7.4-10.4); MONOCYTE # 0.7 10^3/ul (0.3-0.9); MONOCYTES % 8.3 % (0.0-11.0); NEUTROPHIL # 6.3 10^3/ul (1.6-7.5); NEUTROPHILS % 71.9 % (39.0-77.0); PLATELET COUNT 308 10^3/UL (140-415); RED BLOOD COUNT 2.64 10^6/ul (4.20-5.40)
[2017-10-09 06:18] LABS: WHITE BLOOD COUNT 8.8 10^3/ul (4.8-10.8)
[2017-10-09] MEDS: LEVOTHYROXINE 50 MCG TAB PO (06:30)
[2017-10-09] MEDS: LACTULOSE 30ML CUP GTB ×3 (06:32→21:28)
[2017-10-09 07:08] LABS: ANION GAP 10 (8-16); BLOOD UREA NITROGEN 11 mg/dl (7-20); CALCIUM 8.4 mg/dl (8.4-10.2); CARBON DIOXIDE 28 mmol/L (21-31); CHLORIDE 105 mmol/L (97-110); CREATININE 0.56 mg/dl (0.44-1.00); GLUCOSE 106 mg/dl (70-220); POTASSIUM 3.2 mmol/L (3.5-5.1); SODIUM 140 mmol/L (135-144)
[2017-10-09] MEDS: DOCUSATE SODIUM 10 MG/ML (10ML CUP) GTB ×2 (09:06→21:28)
[2017-10-09] MEDS: FERROUS SULFATE 60 MG/ML 5ML CUP GTB ×2 (09:06→21:28)
[2017-10-09] MEDS: MEMANTINE 5 MG TAB PO (09:07)
[2017-10-09] MEDS: CHOLECALCIFEROL 1,000 UNIT TAB GTB (09:07)
[2017-10-09] MEDS: MULTIVITAMINS THERAPEUTIC TAB GTB (09:07)
[2017-10-09] MEDS: DONEPEZIL 5 MG TAB PO (09:07)
[2017-10-09] MEDS: ASCORBIC ACID 500 MG TAB GTB ×2 (09:07→21:28)
[2017-10-09] MEDS: ZINC SULFATE 220 MG CAP GTB (09:07)
[2017-10-09] MEDS: ATORVASTATIN 40 MG TAB GTB (21:28)
[2017-10-09] MEDS: POTASSIUM CHLORIDE 50 ML IVPB (23:23)
[2017-10-10] MEDS: POTASSIUM CHLORIDE 50 ML IVPB (00:47)
[2017-10-10 06:15] LABS: ADD MAN DIFF? NO
[2017-10-10 06:27] LABS: BASOPHILS % 0.4 % (0.0-2.0); EOSINOPHILS % 0.1 % (0.0-7.0); HEMATOCRIT 24.6 % (37.0-47.0); HEMOGLOBIN 8.1 g/dl (12.0-16.0); LYMPHOCYTES # 1.8 10^3/ul (0.8-2.9); LYMPHOCYTES % 19.9 % (15.0-51.0); MEAN CORPUSCULAR HEMOGLOBIN 30.8 pg (29.0-33.0); MEAN CORPUSCULAR HGB CONC 32.9 g/dl (32.0-37.0); MEAN CORPUSCULAR VOLUME 93.5 fl (82.0-101.0); MEAN PLATELET VOLUME 9.8 fl (7.4-10.4); MONOCYTE # 0.9 10^3/ul (0.3-0.9); MONOCYTES % 9.9 % (0.0-11.0); NEUTROPHIL # 6.3 10^3/ul (1.6-7.5); NEUTROPHILS % 69.4 % (39.0-77.0); PLATELET COUNT 297 10^3/UL (140-415); RED BLOOD COUNT 2.63 10^6/ul (4.20-5.40); RED CELL DISTRIBUTION WIDTH 15.1 % (11.5-14.5)
[2017-10-10] MEDS: LEVOTHYROXINE 50 MCG TAB PO (06:38)
[2017-10-10] MEDS: LACTULOSE 30ML CUP GTB ×3 (06:39→21:18)
[2017-10-10 06:57] LABS: ANION GAP 13 (8-16); BLOOD UREA NITROGEN 9 mg/dl (7-20); CALCIUM 7.9 mg/dl (8.4-10.2); CARBON DIOXIDE 26 mmol/L (21-31); CHLORIDE 106 mmol/L (97-110); CREATININE 0.54 mg/dl (0.44-1.00); GLUCOSE 103 mg/dl (70-220); SODIUM 142 mmol/L (135-144)
[2017-10-10] MEDS: DOCUSATE SODIUM 10 MG/ML (10ML CUP) GTB ×2 (10:41→21:17)
[2017-10-10] MEDS: FERROUS SULFATE 60 MG/ML 5ML CUP GTB ×2 (10:41→21:17)
[2017-10-10] MEDS: MEMANTINE 5 MG TAB PO (10:42)
[2017-10-10] MEDS: ZINC SULFATE 220 MG CAP GTB (10:42)
[2017-10-10] MEDS: CHOLECALCIFEROL 1,000 UNIT TAB GTB (10:42)
[2017-10-10] MEDS: ASCORBIC ACID 500 MG TAB GTB ×2 (10:42→21:17)
[2017-10-10] MEDS: DONEPEZIL 5 MG TAB PO (10:43)
[2017-10-10] MEDS: MULTIVITAMINS THERAPEUTIC TAB GTB (10:43)
[2017-10-10] MEDS ORDERED: POTASSIUM CHLORIDE (SR) 20 MEQ TAB PO (11:30)
[2017-10-10] MEDS: POTASSIUM CHLORIDE 20 MEQ POWDER FOR ORAL SOLN GTB ×2 (12:51→21:18)
[2017-10-10] MEDS: ATORVASTATIN 40 MG TAB GTB (21:17)
[2017-10-11] MEDS: LEVOTHYROXINE 50 MCG TAB PO (06:01)
[2017-10-11] MEDS: LACTULOSE 30ML CUP GTB ×2 (06:01→13:27)
[2017-10-11 07:07] LABS: ANION GAP 11 (8-16); BLOOD UREA NITROGEN 12 mg/dl (7-20); CALCIUM 8.2 mg/dl (8.4-10.2); CARBON DIOXIDE 27 mmol/L (21-31); CHLORIDE 106 mmol/L (97-110); CREATININE 0.55 mg/dl (0.44-1.00); GLUCOSE 101 mg/dl (70-220); SODIUM 141 mmol/L (135-144)
[2017-10-11 07:25] LABS: POTASSIUM 2.9 mmol/L (3.5-5.1)
[2017-10-11] MEDS: FERROUS SULFATE 60 MG/ML 5ML CUP GTB ×2 (08:59→20:47)
[2017-10-11] MEDS: POTASSIUM CHLORIDE 20 MEQ POWDER FOR ORAL SOLN GTB ×2 (08:59→20:48)
[2017-10-11] MEDS: ASCORBIC ACID 500 MG TAB GTB ×2 (08:59→20:47)
[2017-10-11] MEDS: DOCUSATE SODIUM 10 MG/ML (10ML CUP) GTB ×2 (08:59→20:48)
[2017-10-11] MEDS: MULTIVITAMINS THERAPEUTIC TAB GTB (09:00)
[2017-10-11] MEDS: DONEPEZIL 5 MG TAB PO (09:00)
[2017-10-11] MEDS: ZINC SULFATE 220 MG CAP GTB (09:00)
[2017-10-11] MEDS: CHOLECALCIFEROL 1,000 UNIT TAB GTB (09:00)
[2017-10-11] MEDS: MEMANTINE 5 MG TAB PO (09:00)
[2017-10-11] MEDS: POTASSIUM CHLORIDE (SR) 20 MEQ TAB PO ×2 (09:00→13:27)
[2017-10-11] MEDS: ATORVASTATIN 40 MG TAB GTB (20:47)
[2017-10-12] MEDS: LEVOTHYROXINE 50 MCG TAB PO (06:19)
[2017-10-12 07:06] LABS: ANION GAP 12 (8-16); BLOOD UREA NITROGEN 14 mg/dl (7-20); CALCIUM 8.5 mg/dl (8.4-10.2); CARBON DIOXIDE 28 mmol/L (21-31); CHLORIDE 105 mmol/L (97-110); CREATININE 0.56 mg/dl (0.44-1.00); GLUCOSE 97 mg/dl (70-220); POTASSIUM 3.6 mmol/L (3.5-5.1); SODIUM 141 mmol/L (135-144)
[2017-10-12] MEDS: POTASSIUM CHLORIDE 20 MEQ POWDER FOR ORAL SOLN GTB ×2 (08:12→20:35)
[2017-10-12] MEDS: ZINC SULFATE 220 MG CAP GTB (08:12)
[2017-10-12] MEDS: MULTIVITAMINS THERAPEUTIC TAB GTB (08:12)
[2017-10-12] MEDS: ASCORBIC ACID 500 MG TAB GTB ×2 (08:12→20:35)
[2017-10-12] MEDS: DONEPEZIL 5 MG TAB PO (08:12)
[2017-10-12] MEDS: CHOLECALCIFEROL 1,000 UNIT TAB GTB (08:12)
[2017-10-12] MEDS: MEMANTINE 5 MG TAB PO (08:12)
[2017-10-12] MEDS: DOCUSATE SODIUM 10 MG/ML (10ML CUP) GTB ×2 (08:12→20:35)
[2017-10-12] MEDS: FERROUS SULFATE 60 MG/ML 5ML CUP GTB ×2 (08:12→20:35)
[2017-10-12] MEDS: ATORVASTATIN 40 MG TAB GTB (20:35)
[2017-10-13] MEDS: LEVOTHYROXINE 50 MCG TAB PO (06:32)
[2017-10-13 07:22] LABS: ANION GAP 13 (8-16); BLOOD UREA NITROGEN 15 mg/dl (7-20); CALCIUM 8.2 mg/dl (8.4-10.2); CARBON DIOXIDE 29 mmol/L (21-31); CHLORIDE 105 mmol/L (97-110); CREATININE 0.57 mg/dl (0.44-1.00); GLUCOSE 105 mg/dl (70-220); POTASSIUM 3.8 mmol/L (3.5-5.1); SODIUM 143 mmol/L (135-144)
[2017-10-13] MEDS: DOCUSATE SODIUM 10 MG/ML (10ML CUP) GTB ×2 (10:04→22:04)
[2017-10-13] MEDS: FERROUS SULFATE 60 MG/ML 5ML CUP GTB ×2 (10:04→22:03)
[2017-10-13] MEDS: MEMANTINE 5 MG TAB PO (10:04)
[2017-10-13] MEDS: ZINC SULFATE 220 MG CAP GTB (10:04)
[2017-10-13] MEDS: CHOLECALCIFEROL 1,000 UNIT TAB GTB (10:04)
[2017-10-13] MEDS: POTASSIUM CHLORIDE 20 MEQ POWDER FOR ORAL SOLN GTB ×2 (10:04→22:04)
[2017-10-13] MEDS: MULTIVITAMINS THERAPEUTIC TAB GTB (10:05)
[2017-10-13] MEDS: ASCORBIC ACID 500 MG TAB GTB ×2 (10:05→22:03)
[2017-10-13] MEDS: DONEPEZIL 5 MG TAB PO (10:05)
[2017-10-13] MEDS: ATORVASTATIN 40 MG TAB GTB (22:03)
[2017-10-14] MEDS: LEVOTHYROXINE 50 MCG TAB PO (06:26)
[2017-10-14 07:37] LABS: ANION GAP 10 (8-16); BLOOD UREA NITROGEN 19 mg/dl (7-20); CALCIUM 8.6 mg/dl (8.4-10.2); CARBON DIOXIDE 30 mmol/L (21-31); CHLORIDE 105 mmol/L (97-110); CREATININE 0.59 mg/dl (0.44-1.00); GLUCOSE 111 mg/dl (70-220); POTASSIUM 3.4 mmol/L (3.5-5.1); SODIUM 142 mmol/L (135-144)
[2017-10-14] MEDS: MULTIVITAMINS THERAPEUTIC TAB GTB (09:33)
[2017-10-14] MEDS: POTASSIUM CHLORIDE 20 MEQ POWDER FOR ORAL SOLN GTB ×3 (09:33→20:03)
[2017-10-14] MEDS: DOCUSATE SODIUM 10 MG/ML (10ML CUP) GTB ×2 (09:33→20:02)
[2017-10-14] MEDS: FERROUS SULFATE 60 MG/ML 5ML CUP GTB ×2 (09:33→20:03)
[2017-10-14] MEDS: ASCORBIC ACID 500 MG TAB GTB ×2 (09:34→20:03)
[2017-10-14] MEDS: MEMANTINE 5 MG TAB PO (09:35)
[2017-10-14] MEDS: DONEPEZIL 5 MG TAB PO (09:35)
[2017-10-14] MEDS: CHOLECALCIFEROL 1,000 UNIT TAB GTB (09:35)
[2017-10-14] MEDS: ZINC SULFATE 220 MG CAP GTB (09:35)
[2017-10-14] MEDS: ATORVASTATIN 40 MG TAB GTB (20:03)
[2017-10-15] MEDS: LEVOTHYROXINE 50 MCG TAB PO (06:00)
[2017-10-15 07:20] LABS: ANION GAP 12 (8-16); BLOOD UREA NITROGEN 21 mg/dl (7-20); CALCIUM 8.5 mg/dl (8.4-10.2); CARBON DIOXIDE 28 mmol/L (21-31); CHLORIDE 107 mmol/L (97-110); CREATININE 0.58 mg/dl (0.44-1.00); GLUCOSE 113 mg/dl (70-220); POTASSIUM 3.7 mmol/L (3.5-5.1); SODIUM 143 mmol/L (135-144)
[2017-10-15] MEDS: FERROUS SULFATE 60 MG/ML 5ML CUP GTB ×2 (08:45→21:32)
[2017-10-15] MEDS: DOCUSATE SODIUM 10 MG/ML (10ML CUP) GTB ×2 (08:45→21:32)
[2017-10-15] MEDS: ASCORBIC ACID 500 MG TAB GTB ×2 (08:46→21:32)
[2017-10-15] MEDS: CHOLECALCIFEROL 1,000 UNIT TAB GTB (08:46)
[2017-10-15] MEDS: MEMANTINE 5 MG TAB PO (08:46)
[2017-10-15] MEDS: DONEPEZIL 5 MG TAB PO (08:46)
[2017-10-15] MEDS: ZINC SULFATE 220 MG CAP GTB (08:46)
[2017-10-15] MEDS: POTASSIUM CHLORIDE 20 MEQ POWDER FOR ORAL SOLN GTB ×2 (08:49→21:32)
[2017-10-15] MEDS: MULTIVITAMINS THERAPEUTIC TAB GTB (08:49)
[2017-10-15] MEDS: ATORVASTATIN 40 MG TAB GTB (21:32)
[2017-10-16] MEDS: LEVOTHYROXINE 50 MCG TAB PO (05:56)
[2017-10-16] MEDS: ASCORBIC ACID 500 MG TAB GTB ×2 (08:41→20:11)
[2017-10-16] MEDS: CHOLECALCIFEROL 1,000 UNIT TAB GTB (08:41)
[2017-10-16] MEDS: MEMANTINE 5 MG TAB PO (08:41)
[2017-10-16] MEDS: DONEPEZIL 5 MG TAB PO (08:41)
[2017-10-16] MEDS: DOCUSATE SODIUM 10 MG/ML (10ML CUP) GTB ×2 (08:42→20:11)
[2017-10-16] MEDS: POTASSIUM CHLORIDE 20 MEQ POWDER FOR ORAL SOLN GTB ×2 (08:42→20:11)
[2017-10-16] MEDS: ZINC SULFATE 220 MG CAP GTB (08:42)
[2017-10-16] MEDS: FERROUS SULFATE 60 MG/ML 5ML CUP GTB ×2 (08:42→20:11)
[2017-10-16] MEDS: MULTIVITAMINS THERAPEUTIC TAB GTB (08:42)
[2017-10-16] MEDS: ATORVASTATIN 40 MG TAB GTB (20:11)
[2017-10-17] MEDS: LEVOTHYROXINE 50 MCG TAB PO (05:46)
[2017-10-17] MEDS: ZINC SULFATE 220 MG CAP GTB (09:42)
[2017-10-17] MEDS: DONEPEZIL 5 MG TAB PO (09:42)
[2017-10-17] MEDS: DOCUSATE SODIUM 10 MG/ML (10ML CUP) GTB (09:42)
[2017-10-17] MEDS: POTASSIUM CHLORIDE 20 MEQ POWDER FOR ORAL SOLN GTB (09:42)
[2017-10-17] MEDS: MEMANTINE 5 MG TAB PO (09:42)
[2017-10-17] MEDS: ASCORBIC ACID 500 MG TAB GTB (09:42)
[2017-10-17] MEDS: MULTIVITAMINS THERAPEUTIC TAB GTB (09:42)
[2017-10-17] MEDS: FERROUS SULFATE 60 MG/ML 5ML CUP GTB (09:42)
[2017-10-17] MEDS: CHOLECALCIFEROL 1,000 UNIT TAB GTB (09:43)
[2017-10-17 12:08] LABS: ADD MAN DIFF? NO
[2017-10-17 12:24] LABS: BASOPHIL # 0.1 10^3/ul (0.0-0.1); BASOPHILS % 0.9 % (0.0-2.0); HEMATOCRIT 26.9 % (37.0-47.0); HEMOGLOBIN 8.9 g/dl (12.0-16.0); LYMPHOCYTES # 1.5 10^3/ul (0.8-2.9); LYMPHOCYTES % 18.4 % (15.0-51.0); MEAN CORPUSCULAR HEMOGLOBIN 31.4 pg (29.0-33.0); MEAN CORPUSCULAR HGB CONC 33.1 g/dl (32.0-37.0); MEAN CORPUSCULAR VOLUME 95.1 fl (82.0-101.0); MEAN PLATELET VOLUME 10.3 fl (7.4-10.4); MONOCYTE # 0.9 10^3/ul (0.3-0.9); MONOCYTES % 11.3 % (0.0-11.0); NEUTROPHIL # 5.5 10^3/ul (1.6-7.5); NEUTROPHILS % 69.1 % (39.0-77.0); PLATELET COUNT 329 10^3/UL (140-415); RED BLOOD COUNT 2.83 10^6/ul (4.20-5.40); RED CELL DISTRIBUTION WIDTH 15.4 % (11.5-14.5)
[2017-10-17 12:34] LABS: ANION GAP 14 (8-16); BLOOD UREA NITROGEN 23 mg/dl (7-20); CALCIUM 8.6 mg/dl (8.4-10.2); CARBON DIOXIDE 26 mmol/L (21-31); CHLORIDE 104 mmol/L (97-110); CREATININE 0.53 mg/dl (0.44-1.00); GLUCOSE 116 mg/dl (70-220); POTASSIUM 3.6 mmol/L (3.5-5.1); SODIUM 140 mmol/L (135-144)
== END 2017-10-17 14:40 | DRG 388 ==
LOC: MS1 10-01 03:20 → MS2 10-03 22:25 → E/R 01:52 → TEL 05:03
PROC: 0DJD8ZZ Inspection of Lower Intestinal Tract, Via Natural or Artificial Opening Endoscopic (ICD-10-PCS; principal; 2017-09-29 14:55)
PROC: 0DH63UZ Insertion of Feeding Device into Stomach, Percutaneous Approach (ICD-10-PCS; 2017-09-29 14:55)
DX: K56.7 Ileus, unspecified (principal); G93.41 Metabolic encephalopathy; E87.0 Hyperosmolality and hypernatremia; E87.3 Alkalosis; T85.528A Displacement of other gastrointestinal prosthetic devices, implants and grafts, initial encounter; R13.10 Dysphagia, unspecified; E87.6 Hypokalemia; E05.90 Thyrotoxicosis, unspecified without thyrotoxic crisis or storm; F03.90 Unspecified dementia, unspecified severity, without behavioral disturbance, psychotic disturbance, mood disturbance, and anxiety; J44.9 Chronic obstructive pulmonary disease, unspecified; E86.0 Dehydration; K59.00 Constipation, unspecified; R19.7 Diarrhea, unspecified; K57.30 Diverticulosis of large intestine without perforation or abscess without bleeding; Z74.01 Bed confinement status
CPT/HCPCS: 36415; 71010; 74000; 74018; 74176; 80048; 80053; 81001; 82140; 83690; 83735; 84100; 84132; 84439; 84443; 85025; 85610; 85730; 87045; 87081; 96361; 96374; 97110; 97530; 99285-25

== ENCOUNTER 2017-10-26 22:18 | Inpatient (IN) | payer MEDICARE, OTHER ==
[2017-10-26] MEDS: IOHEXOL 300MG/ML 150 ML BTL (22:47)
[2017-10-26] MEDS: SOD CHLORIDE 0.9% 100 ML (22:47)
[2017-10-26] MEDS: SOD CHLORIDE 0.9% 500 ML IV (22:48)
[2017-10-26 22:51] LABS: ADD MAN DIFF? NO
[2017-10-26 22:55] LABS: BASOPHILS % 0.3 % (0.0-2.0); HEMATOCRIT 26.8 % (37.0-47.0); HEMOGLOBIN 8.7 g/dl (12.0-16.0); LYMPHOCYTES # 1.3 10^3/ul (0.8-2.9); LYMPHOCYTES % 10.2 % (15.0-51.0); MEAN CORPUSCULAR HEMOGLOBIN 31.5 pg (29.0-33.0); MEAN CORPUSCULAR HGB CONC 32.5 g/dl (32.0-37.0); MEAN CORPUSCULAR VOLUME 97.1 fl (82.0-101.0); MEAN PLATELET VOLUME 9.6 fl (7.4-10.4); MONOCYTE # 1.2 10^3/ul (0.3-0.9); MONOCYTES % 9.7 % (0.0-11.0); NEUTROPHIL # 9.8 10^3/ul (1.6-7.5); NEUTROPHILS % 79.5 % (39.0-77.0); PLATELET COUNT 276 10^3/UL (140-415); RED BLOOD COUNT 2.76 10^6/ul (4.20-5.40); RED CELL DISTRIBUTION WIDTH 15.5 % (11.5-14.5)
[2017-10-26 22:55] LABS: WHITE BLOOD COUNT 12.3 10^3/ul (4.8-10.8)
[2017-10-26 23:14] LABS: ALANINE AMINOTRANSFERASE 38 IU/L (13-69); ALBUMIN 3.5 g/dl (3.3-4.9); ALBUMIN/GLOBULIN RATIO 0.94; ALKALINE PHOSPHATASE 69 IU/L (42-121); ANION GAP 15 (8-16); ASPARTATE AMINO TRANSFERASE 33 IU/L (15-46); BILIRUBIN,INDIRECT 0.5 mg/dl (0-1.1); BILIRUBIN,TOTAL 0.5 mg/dl (0.2-1.3); BLOOD UREA NITROGEN 22 mg/dl (7-20); CALCIUM 8.5 mg/dl (8.4-10.2); CARBON DIOXIDE 31 mmol/L (21-31); CHLORIDE 103 mmol/L (97-110); CREATININE 0.56 mg/dl (0.44-1.00); GLUCOSE 113 mg/dl (70-220); LIPASE 63 U/L (23-300); SODIUM 146 mmol/L (135-144); TOTAL PROTEIN 7.2 g/dl (6.1-8.1)
[2017-10-26 23:16] LABS: POTASSIUM 2.7 mmol/L (3.5-5.1)
[2017-10-26 23:23] LABS: LACTIC ACID 2.2 mmol/L (0.5-2.0)
[2017-10-26 23:25] LABS: TROPONIN-I 0.023 ng/ml (0.00-0.12)
[2017-10-26] MEDS: POTASSIUM CHLORIDE 20 MEQ POWDER FOR ORAL SOLN GTB (23:59)
[2017-10-27] MEDS: NS + KCL 20 MEQ 1,000 ML IV (00:31)
[2017-10-27 01:25] LABS: ADD UMIC NO; UR ASCORBIC ACID 40 mg/dL (NEGATIVE); UR BILIRUBIN (Dip) NEGATIVE (NEGATIVE); UR BLOOD (Dip) NEGATIVE (NEGATIVE); UR CLARITY SLIGHTLY CLOUDY (CLEAR); UR COLOR YELLOW (YELLOW); UR GLUCOSE (Dip) NEGATIVE (NEGATIVE); UR KETONES (Dip) NEGATIVE (NEGATIVE); UR LEUKOCYTE ESTERASE (Dip) NEGATIVE Leu/ul (NEGATIVE); UR MUCUS FEW /HPF (NONE SEEN); UR NITRITE (Dip) NEGATIVE (NEGATIVE); UR RBC 0 /HPF (0-5); UR SPECIFIC GRAVITY (Dip) 1.032 (1.003-1.030); UR TOTAL PROTEIN (Dip) NEGATIVE (NEGATIVE); UR UROBILINOGEN (Dip) NEGATIVE (NEGATIVE); UR WBC 1 /HPF (0-5)
[2017-10-27] MEDS ORDERED: ONDANSETRON 4 MG INJ IV ×3 (02:30→13:00)
[2017-10-27] MEDS ORDERED: ACETAMINOPHEN 325 MG TAB PO (02:30)
[2017-10-27] MEDS ORDERED: morphine 2 MG INJ IV (06:30)
[2017-10-27] MEDS: SOD CHLORIDE 0.9% 1,000 ML IV (09:02)
[2017-10-27 10:23] LABS: ADD MAN DIFF? NO
[2017-10-27 10:26] LABS: BASOPHILS % 0.4 % (0.0-2.0); HEMATOCRIT 26.3 % (37.0-47.0); HEMOGLOBIN 8.2 g/dl (12.0-16.0); LYMPHOCYTES # 1.6 10^3/ul (0.8-2.9); LYMPHOCYTES % 17.3 % (15.0-51.0); MEAN CORPUSCULAR HEMOGLOBIN 30.8 pg (29.0-33.0); MEAN CORPUSCULAR HGB CONC 31.2 g/dl (32.0-37.0); MEAN CORPUSCULAR VOLUME 98.9 fl (82.0-101.0); MEAN PLATELET VOLUME 9.6 fl (7.4-10.4); MONOCYTE # 0.9 10^3/ul (0.3-0.9); MONOCYTES % 9.8 % (0.0-11.0); NEUTROPHIL # 6.5 10^3/ul (1.6-7.5); NEUTROPHILS % 72.3 % (39.0-77.0); PLATELET COUNT 231 10^3/UL (140-415); RED BLOOD COUNT 2.66 10^6/ul (4.20-5.40); RED CELL DISTRIBUTION WIDTH 15.6 % (11.5-14.5)
[2017-10-27 10:26] LABS: WHITE BLOOD COUNT 9.1 10^3/ul (4.8-10.8)
[2017-10-27 11:00] LABS: LACTIC ACID 1.3 mmol/L (0.5-2.0)
[2017-10-27 11:04] LABS: ANION GAP 13 (8-16); BLOOD UREA NITROGEN 21 mg/dl (7-20); CALCIUM 8.3 mg/dl (8.4-10.2); CARBON DIOXIDE 27 mmol/L (21-31); CHLORIDE 111 mmol/L (97-110); CREATININE 0.52 mg/dl (0.44-1.00); GLUCOSE 89 mg/dl (70-220); POTASSIUM 3.2 mmol/L (3.5-5.1); SODIUM 148 mmol/L (135-144)
[2017-10-27] MEDS ORDERED: ACETAMINOPHEN 325/HYDROC 7.5 15 ML CUP GTB (13:00)
[2017-10-27] MEDS ORDERED: ACETAMINOPHEN 650MG/20.3ML CUP GTB (13:00)
[2017-10-27] MEDS: CEFTRIAXONE 1 GM/50 ML (PMX) 50 ML IVPB (15:25)
[2017-10-27] MEDS: D5W-0.45 NACL + KCL 40 MEQ 1,000 ML IV (15:26)
[2017-10-27] MEDS: POTASSIUM CHLORIDE 50 ML IVPB ×4 (16:36→20:31)
[2017-10-27] MEDS: ASCORBIC ACID 500 MG TAB GTB (21:00)
[2017-10-27] MEDS: FERROUS SULFATE 60 MG/ML 5ML CUP GTB (21:00)
[2017-10-27] MEDS: MEMANTINE 10 MG TAB GTB (21:00)
[2017-10-27] MEDS: ATORVASTATIN 40 MG TAB GTB (21:00)
[2017-10-28] MEDS: D5W-0.45 NACL + KCL 40 MEQ 1,000 ML IV ×2 (03:00→11:17)
[2017-10-28] MEDS: LEVOTHYROXINE 25 MCG TAB GTB (07:00)
[2017-10-28 08:43] LABS: ADD MAN DIFF? NO
[2017-10-28 08:48] LABS: WHITE BLOOD COUNT 5.5 10^3/ul (4.8-10.8)
[2017-10-28 08:48] LABS: BASOPHILS % 0.5 % (0.0-2.0); HEMATOCRIT 24.3 % (37.0-47.0); HEMOGLOBIN 7.8 g/dl (12.0-16.0); LYMPHOCYTES # 1.1 10^3/ul (0.8-2.9); LYMPHOCYTES % 19.6 % (15.0-51.0); MEAN CORPUSCULAR HEMOGLOBIN 31.1 pg (29.0-33.0); MEAN CORPUSCULAR HGB CONC 32.1 g/dl (32.0-37.0); MEAN CORPUSCULAR VOLUME 96.8 fl (82.0-101.0); MEAN PLATELET VOLUME 10.1 fl (7.4-10.4); MONOCYTE # 0.7 10^3/ul (0.3-0.9); NEUTROPHIL # 3.7 10^3/ul (1.6-7.5); NEUTROPHILS % 67.5 % (39.0-77.0); PLATELET COUNT 234 10^3/UL (140-415); RED BLOOD COUNT 2.51 10^6/ul (4.20-5.40); RED CELL DISTRIBUTION WIDTH 15.2 % (11.5-14.5)
[2017-10-28] MEDS: MULTIVITAMINS THERAPEUTIC TAB GTB (09:00)
[2017-10-28] MEDS: DONEPEZIL 5 MG TAB GTB (09:00)
[2017-10-28] MEDS: CHOLECALCIFEROL 1,000 UNIT TAB GTB (09:00)
[2017-10-28] MEDS: ASCORBIC ACID 500 MG TAB GTB ×2 (09:00→21:24)
[2017-10-28] MEDS: FERROUS SULFATE 60 MG/ML 5ML CUP GTB ×2 (09:00→21:24)
[2017-10-28] MEDS: MEMANTINE 10 MG TAB GTB ×2 (09:00→21:24)
[2017-10-28 09:08] LABS: ANION GAP 12 (8-16); BLOOD UREA NITROGEN 17 mg/dl (7-20); CALCIUM 8.5 mg/dl (8.4-10.2); CARBON DIOXIDE 28 mmol/L (21-31); CHLORIDE 111 mmol/L (97-110); CREATININE 0.52 mg/dl (0.44-1.00); GLUCOSE 101 mg/dl (70-220); POTASSIUM 3.2 mmol/L (3.5-5.1); SODIUM 148 mmol/L (135-144)
[2017-10-28 09:23] LABS: FREE T4 (FREE THYROXINE) 0.73 ng/dl (0.85-1.93)
[2017-10-28] MEDS: LACTULOSE 30ML CUP PO ×4 (10:00→22:02)
[2017-10-28] MEDS ORDERED: POTASSIUM CHLORIDE 50 ML IVPB (12:00)
[2017-10-28] MEDS: POTASSIUM CHLORIDE 20 MEQ in DEXTROSE 5% 100 ML IV (13:19)
[2017-10-28] MEDS: CEFTRIAXONE 1 GM/50 ML (PMX) 50 ML IVPB (14:54)
[2017-10-28] MEDS: ATORVASTATIN 40 MG TAB GTB (21:24)
[2017-10-29] MEDS: LACTULOSE 30ML CUP PO ×6 (02:01→21:20)
[2017-10-29] MEDS: D5W-0.45 NACL + KCL 40 MEQ 1,000 ML IV ×4 (02:02→20:30)
[2017-10-29] MEDS: POTASSIUM CHLORIDE 40 MEQ in DEXTROSE 5%-0.45% NACL 1,000 ML IV ×3 (04:00→16:45)
[2017-10-29] MEDS: LEVOTHYROXINE 25 MCG TAB GTB (06:11)
[2017-10-29 06:51] LABS: ADD MAN DIFF? NO
[2017-10-29 06:55] LABS: WHITE BLOOD COUNT 6.3 10^3/ul (4.8-10.8)
[2017-10-29 06:55] LABS: BASOPHILS % 0.5 % (0.0-2.0); HEMATOCRIT 26.4 % (37.0-47.0); HEMOGLOBIN 8.5 g/dl (12.0-16.0); LYMPHOCYTES # 1.4 10^3/ul (0.8-2.9); MEAN CORPUSCULAR HEMOGLOBIN 31.1 pg (29.0-33.0); MEAN CORPUSCULAR HGB CONC 32.2 g/dl (32.0-37.0); MEAN CORPUSCULAR VOLUME 96.7 fl (82.0-101.0); MEAN PLATELET VOLUME 9.9 fl (7.4-10.4); MONOCYTE # 0.8 10^3/ul (0.3-0.9); MONOCYTES % 12.3 % (0.0-11.0); NEUTROPHILS % 63.9 % (39.0-77.0); PLATELET COUNT 241 10^3/UL (140-415); RED BLOOD COUNT 2.73 10^6/ul (4.20-5.40); RED CELL DISTRIBUTION WIDTH 15.1 % (11.5-14.5)
[2017-10-29 07:21] LABS: ANION GAP 14 (8-16); BLOOD UREA NITROGEN 11 mg/dl (7-20); CALCIUM 8.4 mg/dl (8.4-10.2); CARBON DIOXIDE 23 mmol/L (21-31); CHLORIDE 114 mmol/L (97-110); CREATININE 0.49 mg/dl (0.44-1.00); GLUCOSE 105 mg/dl (70-220); POTASSIUM 3.1 mmol/L (3.5-5.1); SODIUM 148 mmol/L (135-144)
[2017-10-29] MEDS: MEMANTINE 10 MG TAB GTB ×2 (09:00→20:53)
[2017-10-29] MEDS: CHOLECALCIFEROL 1,000 UNIT TAB GTB (09:00)
[2017-10-29] MEDS: ASCORBIC ACID 500 MG TAB GTB ×2 (09:00→20:53)
[2017-10-29] MEDS: MULTIVITAMINS THERAPEUTIC TAB GTB (09:00)
[2017-10-29] MEDS: FERROUS SULFATE 60 MG/ML 5ML CUP GTB ×2 (09:00→20:53)
[2017-10-29] MEDS: DONEPEZIL 5 MG TAB GTB (09:00)
[2017-10-29] MEDS: metroNIDAZOLE 500 MG/NS (PMX) 100 ML IVPB ×2 (12:31→17:27)
[2017-10-29] MEDS: CEFTRIAXONE 1 GM/50 ML (PMX) 50 ML IVPB (14:26)
[2017-10-29] MEDS: ATORVASTATIN 40 MG TAB GTB (20:53)
[2017-10-30] MEDS: metroNIDAZOLE 500 MG/NS (PMX) 100 ML IVPB ×5 (00:28→23:45)
[2017-10-30] MEDS: LACTULOSE 30ML CUP PO ×6 (00:31→21:30)
[2017-10-30] MEDS: POTASSIUM CHLORIDE 40 MEQ in DEXTROSE 5%-0.45% NACL 1,000 ML IV ×3 (05:48→21:44)
[2017-10-30] MEDS: LEVOTHYROXINE 25 MCG TAB GTB (06:41)
[2017-10-30 07:57] LABS: ANION GAP 15 (8-16); BLOOD UREA NITROGEN 9 mg/dl (7-20); CALCIUM 7.5 mg/dl (8.4-10.2); CARBON DIOXIDE 21 mmol/L (21-31); CHLORIDE 112 mmol/L (97-110); CREATININE 0.47 mg/dl (0.44-1.00); GLUCOSE 123 mg/dl (70-220); SODIUM 145 mmol/L (135-144)
[2017-10-30 08:02] LABS: POTASSIUM 2.8 mmol/L (3.5-5.1)
[2017-10-30] MEDS: POTASSIUM CHLORIDE 20 MEQ POWDER FOR ORAL SOLN GTB ×2 (09:02→12:00)
[2017-10-30] MEDS: DONEPEZIL 5 MG TAB GTB (09:02)
[2017-10-30] MEDS: CHOLECALCIFEROL 1,000 UNIT TAB GTB (09:03)
[2017-10-30] MEDS: ASCORBIC ACID 500 MG TAB GTB ×2 (09:03→20:53)
[2017-10-30] MEDS: MEMANTINE 10 MG TAB GTB ×2 (09:03→20:53)
[2017-10-30] MEDS: FERROUS SULFATE 60 MG/ML 5ML CUP GTB ×2 (09:03→20:53)
[2017-10-30] MEDS: MULTIVITAMINS THERAPEUTIC TAB GTB (09:03)
[2017-10-30] MEDS: CEFTRIAXONE 1 GM/50 ML (PMX) 50 ML IVPB (14:35)
[2017-10-30] MEDS: ATORVASTATIN 40 MG TAB GTB (20:53)
[2017-10-30] MEDS: MUPIROCIN 2% 22 GM OINT TOP (20:54)
[2017-10-31] MEDS: LACTULOSE 30ML CUP PO ×4 (01:03→12:10)
[2017-10-31] MEDS: metroNIDAZOLE 500 MG/NS (PMX) 100 ML IVPB ×3 (05:42→18:18)
[2017-10-31] MEDS: POTASSIUM CHLORIDE 40 MEQ in DEXTROSE 5%-0.45% NACL 1,000 ML IV ×2 (06:24→13:22)
[2017-10-31] MEDS: LEVOTHYROXINE 25 MCG TAB GTB (06:25)
[2017-10-31 07:20] LABS: ANION GAP 11 (8-16); BLOOD UREA NITROGEN 10 mg/dl (7-20); CALCIUM 7.7 mg/dl (8.4-10.2); CARBON DIOXIDE 22 mmol/L (21-31); CHLORIDE 113 mmol/L (97-110); CREATININE 0.49 mg/dl (0.44-1.00); GLUCOSE 100 mg/dl (70-220); SODIUM 143 mmol/L (135-144)
[2017-10-31 07:22] LABS: POTASSIUM 2.9 mmol/L (3.5-5.1)
[2017-10-31] MEDS: CHOLECALCIFEROL 1,000 UNIT TAB GTB (08:41)
[2017-10-31] MEDS: DONEPEZIL 5 MG TAB GTB (08:41)
[2017-10-31] MEDS: MULTIVITAMINS THERAPEUTIC TAB GTB (08:41)
[2017-10-31] MEDS: ASCORBIC ACID 500 MG TAB GTB ×2 (08:41→21:02)
[2017-10-31] MEDS: MEMANTINE 10 MG TAB GTB ×2 (08:41→21:02)
[2017-10-31] MEDS: FERROUS SULFATE 60 MG/ML 5ML CUP GTB ×2 (08:41→21:01)
[2017-10-31] MEDS: MUPIROCIN 2% 22 GM OINT TOP ×2 (08:42→21:02)
[2017-10-31] MEDS: POTASSIUM CHLORIDE 20 MEQ POWDER FOR ORAL SOLN GTB ×2 (08:42→16:54)
[2017-10-31] MEDS: CEFTRIAXONE 1 GM/50 ML (PMX) 50 ML IVPB (13:18)
[2017-10-31] MEDS ORDERED: POTASSIUM CHLORIDE 50 ML IVPB (14:30)
[2017-10-31] MEDS: KCL 40 MEQ in NS 250 ML IVPB X1 IVPB (16:53)
[2017-10-31] MEDS: VANCOMYCIN HCL 250 MG/5ML POSYG PO ×2 (16:54→20:00)
[2017-10-31] MEDS: LACTOBACILLUS RHAMNOSUS CAP PO (16:54)
[2017-10-31] MEDS: ATORVASTATIN 40 MG TAB GTB (21:01)
[2017-11-01] MEDS: metroNIDAZOLE 500 MG/NS (PMX) 100 ML IVPB ×4 (00:42→18:07)
[2017-11-01] MEDS: VANCOMYCIN HCL 250 MG/5ML POSYG PO ×4 (00:46→18:07)
[2017-11-01] MEDS: LEVOTHYROXINE 25 MCG TAB GTB (06:39)
[2017-11-01 07:36] LABS: ADD MAN DIFF? NO
[2017-11-01 07:46] LABS: WHITE BLOOD COUNT 8.4 10^3/ul (4.8-10.8)
[2017-11-01 07:46] LABS: BASOPHILS % 0.4 % (0.0-2.0); HEMATOCRIT 25.2 % (37.0-47.0); LYMPHOCYTES # 2.2 10^3/ul (0.8-2.9); LYMPHOCYTES % 26.2 % (15.0-51.0); MEAN CORPUSCULAR HEMOGLOBIN 30.3 pg (29.0-33.0); MEAN CORPUSCULAR HGB CONC 31.7 g/dl (32.0-37.0); MEAN CORPUSCULAR VOLUME 95.5 fl (82.0-101.0); MEAN PLATELET VOLUME 9.9 fl (7.4-10.4); MONOCYTE # 0.7 10^3/ul (0.3-0.9); MONOCYTES % 8.4 % (0.0-11.0); NEUTROPHIL # 5.4 10^3/ul (1.6-7.5); NEUTROPHILS % 64.6 % (39.0-77.0); PLATELET COUNT 251 10^3/UL (140-415); RED BLOOD COUNT 2.64 10^6/ul (4.20-5.40); RED CELL DISTRIBUTION WIDTH 14.9 % (11.5-14.5)
[2017-11-01 07:57] LABS: ANION GAP 11 (8-16); BLOOD UREA NITROGEN 10 mg/dl (7-20); CALCIUM 8.3 mg/dl (8.4-10.2); CARBON DIOXIDE 23 mmol/L (21-31); CHLORIDE 112 mmol/L (97-110); CREATININE 0.46 mg/dl (0.44-1.00); GLUCOSE 96 mg/dl (70-220); POTASSIUM 4.1 mmol/L (3.5-5.1); SODIUM 142 mmol/L (135-144)
[2017-11-01 08:06] LABS: POSITIVE DIFF @See below
[2017-11-01] MEDS: FERROUS SULFATE 60 MG/ML 5ML CUP GTB ×2 (09:02→20:18)
[2017-11-01] MEDS: DONEPEZIL 5 MG TAB GTB (09:02)
[2017-11-01] MEDS: MEMANTINE 10 MG TAB GTB ×2 (09:02→20:18)
[2017-11-01] MEDS: ASCORBIC ACID 500 MG TAB GTB ×2 (09:02→20:18)
[2017-11-01] MEDS: MULTIVITAMINS THERAPEUTIC TAB GTB (09:02)
[2017-11-01] MEDS: MUPIROCIN 2% 22 GM OINT TOP ×2 (09:03→20:19)
[2017-11-01] MEDS: CHOLECALCIFEROL 1,000 UNIT TAB GTB (09:03)
[2017-11-01] MEDS: ATORVASTATIN 40 MG TAB GTB (20:18)
[2017-11-02] MEDS: metroNIDAZOLE 500 MG/NS (PMX) 100 ML IVPB ×4 (00:57→18:45)
[2017-11-02] MEDS: VANCOMYCIN HCL 250 MG/5ML POSYG GTB ×4 (00:57→18:45)
[2017-11-02] MEDS: LEVOTHYROXINE 25 MCG TAB GTB (06:10)
[2017-11-02 06:46] LABS: ANION GAP 12 (8-16); BLOOD UREA NITROGEN 11 mg/dl (7-20); CARBON DIOXIDE 22 mmol/L (21-31); CHLORIDE 111 mmol/L (97-110); GLUCOSE 97 mg/dl (70-220); POTASSIUM 3.1 mmol/L (3.5-5.1); SODIUM 142 mmol/L (135-144)
[2017-11-02] MEDS: FERROUS SULFATE 60 MG/ML 5ML CUP GTB ×2 (08:32→20:54)
[2017-11-02] MEDS: MULTIVITAMINS THERAPEUTIC TAB GTB (08:33)
[2017-11-02] MEDS: DONEPEZIL 5 MG TAB GTB (08:33)
[2017-11-02] MEDS: ASCORBIC ACID 500 MG TAB GTB ×2 (08:33→20:55)
[2017-11-02] MEDS: MEMANTINE 10 MG TAB GTB ×2 (08:33→20:55)
[2017-11-02] MEDS: CHOLECALCIFEROL 1,000 UNIT TAB GTB (08:33)
[2017-11-02] MEDS: MUPIROCIN 2% 22 GM OINT TOP ×2 (08:33→20:54)
[2017-11-02] MEDS: POTASSIUM CHLORIDE 20 MEQ POWDER FOR ORAL SOLN GTB (13:27)
[2017-11-02] MEDS: POTASSIUM CHLORIDE 100 ML IVPB (14:32)
[2017-11-02] MEDS: ATORVASTATIN 40 MG TAB GTB (20:54)
[2017-11-03] MEDS: VANCOMYCIN HCL 250 MG/5ML POSYG GTB ×4 (05:35→18:07)
[2017-11-03] MEDS: LEVOTHYROXINE 25 MCG TAB GTB (05:35)
[2017-11-03] MEDS: metroNIDAZOLE 500 MG/NS (PMX) 100 ML IVPB ×4 (05:36→18:07)
[2017-11-03 06:25] LABS: ADD MAN DIFF? NO
[2017-11-03 06:33] LABS: WHITE BLOOD COUNT 6.9 10^3/ul (4.8-10.8)
[2017-11-03 06:33] LABS: BASOPHILS % 0.6 % (0.0-2.0); HEMOGLOBIN 7.9 g/dl (12.0-16.0); LYMPHOCYTES # 2.1 10^3/ul (0.8-2.9); LYMPHOCYTES % 30.4 % (15.0-51.0); MEAN CORPUSCULAR HEMOGLOBIN 31.1 pg (29.0-33.0); MEAN CORPUSCULAR HGB CONC 32.9 g/dl (32.0-37.0); MEAN CORPUSCULAR VOLUME 94.5 fl (82.0-101.0); MEAN PLATELET VOLUME 10.2 fl (7.4-10.4); MONOCYTE # 0.7 10^3/ul (0.3-0.9); MONOCYTES % 9.9 % (0.0-11.0); NEUTROPHIL # 4.1 10^3/ul (1.6-7.5); NEUTROPHILS % 58.5 % (39.0-77.0); PLATELET COUNT 260 10^3/UL (140-415); RED BLOOD COUNT 2.54 10^6/ul (4.20-5.40); RED CELL DISTRIBUTION WIDTH 14.6 % (11.5-14.5)
[2017-11-03 06:57] LABS: ANION GAP 9 (8-16); BLOOD UREA NITROGEN 11 mg/dl (7-20); CALCIUM 7.9 mg/dl (8.4-10.2); CARBON DIOXIDE 23 mmol/L (21-31); CHLORIDE 112 mmol/L (97-110); CREATININE 0.45 mg/dl (0.44-1.00); GLUCOSE 106 mg/dl (70-220); POTASSIUM 3.3 mmol/L (3.5-5.1); SODIUM 141 mmol/L (135-144)
[2017-11-03] MEDS: MULTIVITAMINS THERAPEUTIC TAB GTB (08:48)
[2017-11-03] MEDS: DONEPEZIL 5 MG TAB GTB (08:48)
[2017-11-03] MEDS: FERROUS SULFATE 60 MG/ML 5ML CUP GTB ×2 (08:48→20:09)
[2017-11-03] MEDS: CHOLECALCIFEROL 1,000 UNIT TAB GTB (08:49)
[2017-11-03] MEDS: ASCORBIC ACID 500 MG TAB GTB ×2 (08:50→20:10)
[2017-11-03] MEDS: MEMANTINE 10 MG TAB GTB ×2 (08:51→20:10)
[2017-11-03] MEDS: MUPIROCIN 2% 22 GM OINT TOP ×2 (08:51→20:10)
[2017-11-03] MEDS: ATORVASTATIN 40 MG TAB GTB (20:10)
[2017-11-04] MEDS: VANCOMYCIN HCL 250 MG/5ML POSYG GTB ×5 (00:14→23:20)
[2017-11-04] MEDS: metroNIDAZOLE 500 MG/NS (PMX) 100 ML IVPB ×5 (00:14→23:19)
[2017-11-04] MEDS: POTASSIUM CHLORIDE (SR) 20 MEQ TAB PO (00:14)
[2017-11-04] MEDS: LEVOTHYROXINE 25 MCG TAB GTB (05:57)
[2017-11-04 06:13] LABS: ADD MAN DIFF? NO
[2017-11-04 06:19] LABS: BASOPHILS % 0.3 % (0.0-2.0); HEMATOCRIT 25.3 % (37.0-47.0); HEMOGLOBIN 8.4 g/dl (12.0-16.0); LYMPHOCYTES # 2.3 10^3/ul (0.8-2.9); LYMPHOCYTES % 25.8 % (15.0-51.0); MEAN CORPUSCULAR HEMOGLOBIN 30.9 pg (29.0-33.0); MEAN CORPUSCULAR HGB CONC 33.2 g/dl (32.0-37.0); MEAN PLATELET VOLUME 9.9 fl (7.4-10.4); MONOCYTES % 10.9 % (0.0-11.0); NEUTROPHIL # 5.5 10^3/ul (1.6-7.5); NEUTROPHILS % 62.5 % (39.0-77.0); PLATELET COUNT 302 10^3/UL (140-415); RED BLOOD COUNT 2.72 10^6/ul (4.20-5.40); RED CELL DISTRIBUTION WIDTH 14.6 % (11.5-14.5)
[2017-11-04 06:19] LABS: WHITE BLOOD COUNT 8.8 10^3/ul (4.8-10.8)
[2017-11-04 07:02] LABS: ANION GAP 8 (8-16); BLOOD UREA NITROGEN 13 mg/dl (7-20); CALCIUM 7.9 mg/dl (8.4-10.2); CARBON DIOXIDE 26 mmol/L (21-31); CHLORIDE 109 mmol/L (97-110); CREATININE 0.48 mg/dl (0.44-1.00); GLUCOSE 93 mg/dl (70-220); POTASSIUM 3.3 mmol/L (3.5-5.1); SODIUM 140 mmol/L (135-144)
[2017-11-04] MEDS: DONEPEZIL 5 MG TAB GTB (09:13)
[2017-11-04] MEDS: MULTIVITAMINS THERAPEUTIC TAB GTB (09:13)
[2017-11-04] MEDS: ASCORBIC ACID 500 MG TAB GTB ×2 (09:13→21:01)
[2017-11-04] MEDS: MEMANTINE 10 MG TAB GTB ×2 (09:13→21:01)
[2017-11-04] MEDS: CHOLECALCIFEROL 1,000 UNIT TAB GTB (09:13)
[2017-11-04] MEDS: MUPIROCIN 2% 22 GM OINT TOP ×2 (09:14→21:01)
[2017-11-04] MEDS: FERROUS SULFATE 60 MG/ML 5ML CUP GTB ×2 (09:15→21:00)
[2017-11-04] MEDS: POTASSIUM CHLORIDE 20 MEQ POWDER FOR ORAL SOLN GTB (12:48)
[2017-11-04] MEDS: ATORVASTATIN 40 MG TAB GTB (21:01)
[2017-11-05] MEDS: LEVOTHYROXINE 25 MCG TAB GTB (05:32)
[2017-11-05] MEDS: VANCOMYCIN HCL 250 MG/5ML POSYG GTB ×4 (05:32→23:48)
[2017-11-05] MEDS: metroNIDAZOLE 500 MG/NS (PMX) 100 ML IVPB ×4 (05:33→23:49)
[2017-11-05 06:53] LABS: ANION GAP 10 (8-16); BLOOD UREA NITROGEN 12 mg/dl (7-20); CALCIUM 8.1 mg/dl (8.4-10.2); CARBON DIOXIDE 26 mmol/L (21-31); CHLORIDE 108 mmol/L (97-110); CREATININE 0.45 mg/dl (0.44-1.00); GLUCOSE 100 mg/dl (70-220); POTASSIUM 3.5 mmol/L (3.5-5.1); SODIUM 140 mmol/L (135-144)
[2017-11-05 07:23] LABS: MAGNESIUM 1.8 mg/dl (1.7-2.5)
[2017-11-05] MEDS: MEMANTINE 10 MG TAB GTB ×2 (09:08→20:39)
[2017-11-05] MEDS: ASCORBIC ACID 500 MG TAB GTB ×2 (09:08→20:39)
[2017-11-05] MEDS: FERROUS SULFATE 60 MG/ML 5ML CUP GTB ×2 (09:08→20:38)
[2017-11-05] MEDS: MULTIVITAMINS THERAPEUTIC TAB GTB (09:08)
[2017-11-05] MEDS: DONEPEZIL 5 MG TAB GTB (09:08)
[2017-11-05] MEDS: CHOLECALCIFEROL 1,000 UNIT TAB GTB (09:08)
[2017-11-05] MEDS: MUPIROCIN 2% 22 GM OINT TOP ×2 (09:09→20:39)
[2017-11-05] MEDS: POTASSIUM CHLORIDE 20 MEQ POWDER FOR ORAL SOLN GTB (09:10)
[2017-11-05] MEDS: ATORVASTATIN 40 MG TAB GTB (20:39)
[2017-11-06] MEDS: LEVOTHYROXINE 25 MCG TAB GTB (05:41)
[2017-11-06] MEDS: metroNIDAZOLE 500 MG/NS (PMX) 100 ML IVPB ×3 (05:41→17:30)
[2017-11-06] MEDS: VANCOMYCIN HCL 250 MG/5ML POSYG GTB ×3 (05:50→17:30)
[2017-11-06 06:22] LABS: ANION GAP 8 (8-16); BLOOD UREA NITROGEN 15 mg/dl (7-20); CALCIUM 8.5 mg/dl (8.4-10.2); CARBON DIOXIDE 29 mmol/L (21-31); CHLORIDE 107 mmol/L (97-110); GLUCOSE 104 mg/dl (70-220); POTASSIUM 4.1 mmol/L (3.5-5.1); SODIUM 140 mmol/L (135-144)
[2017-11-06] MEDS: DONEPEZIL 5 MG TAB GTB (09:33)
[2017-11-06] MEDS: ASCORBIC ACID 500 MG TAB GTB ×2 (09:33→20:59)
[2017-11-06] MEDS: MEMANTINE 10 MG TAB GTB ×2 (09:33→20:59)
[2017-11-06] MEDS: FERROUS SULFATE 60 MG/ML 5ML CUP GTB ×2 (09:33→20:58)
[2017-11-06] MEDS: MULTIVITAMINS THERAPEUTIC TAB GTB (09:33)
[2017-11-06] MEDS: POTASSIUM CHLORIDE 20 MEQ POWDER FOR ORAL SOLN GTB (09:34)
[2017-11-06] MEDS: MUPIROCIN 2% 22 GM OINT TOP ×2 (09:34→20:59)
[2017-11-06] MEDS: CHOLECALCIFEROL 1,000 UNIT TAB GTB (09:34)
[2017-11-06] MEDS: ATORVASTATIN 40 MG TAB GTB (20:59)
[2017-11-07] MEDS: VANCOMYCIN HCL 250 MG/5ML POSYG GTB ×5 (00:01→23:55)
[2017-11-07] MEDS: metroNIDAZOLE 500 MG/NS (PMX) 100 ML IVPB ×5 (00:01→23:54)
[2017-11-07] MEDS: LEVOTHYROXINE 25 MCG TAB GTB (06:02)
[2017-11-07 06:16] LABS: ADD MAN DIFF? NO
[2017-11-07 06:38] LABS: BASOPHIL # 0.1 10^3/ul (0.0-0.1); BASOPHILS % 0.7 % (0.0-2.0); HEMATOCRIT 26.3 % (37.0-47.0); HEMOGLOBIN 8.5 g/dl (12.0-16.0); LYMPHOCYTES # 1.8 10^3/ul (0.8-2.9); MEAN CORPUSCULAR HEMOGLOBIN 30.8 pg (29.0-33.0); MEAN CORPUSCULAR HGB CONC 32.3 g/dl (32.0-37.0); MEAN CORPUSCULAR VOLUME 95.3 fl (82.0-101.0); MEAN PLATELET VOLUME 10.2 fl (7.4-10.4); MONOCYTE # 0.9 10^3/ul (0.3-0.9); MONOCYTES % 9.4 % (0.0-11.0); NEUTROPHIL # 6.7 10^3/ul (1.6-7.5); NEUTROPHILS % 70.5 % (39.0-77.0); PLATELET COUNT 348 10^3/UL (140-415); RED BLOOD COUNT 2.76 10^6/ul (4.20-5.40); RED CELL DISTRIBUTION WIDTH 15.5 % (11.5-14.5)
[2017-11-07 06:38] LABS: WHITE BLOOD COUNT 9.5 10^3/ul (4.8-10.8)
[2017-11-07 06:50] LABS: ANION GAP 10 (8-16); BLOOD UREA NITROGEN 14 mg/dl (7-20); CALCIUM 8.4 mg/dl (8.4-10.2); CARBON DIOXIDE 29 mmol/L (21-31); CHLORIDE 107 mmol/L (97-110); GLUCOSE 100 mg/dl (70-220); POTASSIUM 3.5 mmol/L (3.5-5.1); SODIUM 142 mmol/L (135-144)
[2017-11-07] MEDS: POTASSIUM CHLORIDE 20 MEQ POWDER FOR ORAL SOLN GTB (09:36)
[2017-11-07] MEDS: FERROUS SULFATE 60 MG/ML 5ML CUP GTB ×2 (09:36→21:17)
[2017-11-07] MEDS: CHOLECALCIFEROL 1,000 UNIT TAB GTB (09:36)
[2017-11-07] MEDS: MULTIVITAMINS THERAPEUTIC TAB GTB (09:37)
[2017-11-07] MEDS: DONEPEZIL 5 MG TAB GTB (09:37)
[2017-11-07] MEDS: MEMANTINE 10 MG TAB GTB ×2 (09:37→21:17)
[2017-11-07] MEDS: ASCORBIC ACID 500 MG TAB GTB ×2 (09:37→21:17)
[2017-11-07] MEDS: MUPIROCIN 2% 22 GM OINT TOP ×2 (09:38→21:17)
[2017-11-07] MEDS: ATORVASTATIN 40 MG TAB GTB (21:17)
[2017-11-08] MEDS: LEVOTHYROXINE 25 MCG TAB GTB (06:02)
[2017-11-08] MEDS: metroNIDAZOLE 500 MG/NS (PMX) 100 ML IVPB ×3 (06:02→17:33)
[2017-11-08] MEDS: VANCOMYCIN HCL 250 MG/5ML POSYG GTB ×3 (06:02→17:32)
[2017-11-08 06:03] LABS: ADD MAN DIFF? NO
[2017-11-08 06:16] LABS: WHITE BLOOD COUNT 8.4 10^3/ul (4.8-10.8)
[2017-11-08 06:16] LABS: BASOPHIL # 0.1 10^3/ul (0.0-0.1); BASOPHILS % 0.8 % (0.0-2.0); HEMATOCRIT 24.8 % (37.0-47.0); HEMOGLOBIN 8.2 g/dl (12.0-16.0); LYMPHOCYTES # 1.8 10^3/ul (0.8-2.9); LYMPHOCYTES % 21.8 % (15.0-51.0); MEAN CORPUSCULAR HEMOGLOBIN 31.4 pg (29.0-33.0); MEAN CORPUSCULAR HGB CONC 33.1 g/dl (32.0-37.0); MEAN PLATELET VOLUME 9.9 fl (7.4-10.4); MONOCYTE # 0.9 10^3/ul (0.3-0.9); MONOCYTES % 10.7 % (0.0-11.0); NEUTROPHIL # 5.6 10^3/ul (1.6-7.5); NEUTROPHILS % 66.3 % (39.0-77.0); PLATELET COUNT 326 10^3/UL (140-415); RED BLOOD COUNT 2.61 10^6/ul (4.20-5.40); RED CELL DISTRIBUTION WIDTH 15.4 % (11.5-14.5)
[2017-11-08 06:42] LABS: ANION GAP 10 (8-16); BLOOD UREA NITROGEN 14 mg/dl (7-20); CALCIUM 8.4 mg/dl (8.4-10.2); CARBON DIOXIDE 28 mmol/L (21-31); CHLORIDE 105 mmol/L (97-110); CREATININE 0.51 mg/dl (0.44-1.00); GLUCOSE 115 mg/dl (70-220); POTASSIUM 3.8 mmol/L (3.5-5.1); SODIUM 139 mmol/L (135-144)
[2017-11-08] MEDS: MEMANTINE 10 MG TAB GTB ×2 (10:14→21:22)
[2017-11-08] MEDS: MULTIVITAMINS THERAPEUTIC TAB GTB (10:14)
[2017-11-08] MEDS: DONEPEZIL 5 MG TAB GTB (10:15)
[2017-11-08] MEDS: FERROUS SULFATE 60 MG/ML 5ML CUP GTB ×2 (10:15→21:21)
[2017-11-08] MEDS: POTASSIUM CHLORIDE 20 MEQ POWDER FOR ORAL SOLN GTB (10:15)
[2017-11-08] MEDS: ASCORBIC ACID 500 MG TAB GTB ×2 (10:15→21:22)
[2017-11-08] MEDS: CHOLECALCIFEROL 1,000 UNIT TAB GTB (10:15)
[2017-11-08] MEDS: MUPIROCIN 2% 22 GM OINT TOP ×2 (10:16→21:22)
[2017-11-08] MEDS: ATORVASTATIN 40 MG TAB GTB (21:22)
[2017-11-09] MEDS: VANCOMYCIN HCL 250 MG/5ML POSYG GTB ×4 (00:12→18:03)
[2017-11-09] MEDS: metroNIDAZOLE 500 MG/NS (PMX) 100 ML IVPB ×4 (00:12→18:02)
[2017-11-09] MEDS: LEVOTHYROXINE 25 MCG TAB GTB (06:28)
[2017-11-09 06:50] LABS: ANION GAP 10 (8-16); BLOOD UREA NITROGEN 16 mg/dl (7-20); CALCIUM 8.6 mg/dl (8.4-10.2); CARBON DIOXIDE 30 mmol/L (21-31); CHLORIDE 104 mmol/L (97-110); CREATININE 0.55 mg/dl (0.44-1.00); GLUCOSE 99 mg/dl (70-220); POTASSIUM 3.8 mmol/L (3.5-5.1); SODIUM 140 mmol/L (135-144)
[2017-11-09] MEDS: DONEPEZIL 5 MG TAB GTB (08:36)
[2017-11-09] MEDS: FERROUS SULFATE 60 MG/ML 5ML CUP GTB ×2 (08:36→20:43)
[2017-11-09] MEDS: MEMANTINE 10 MG TAB GTB ×2 (08:37→20:43)
[2017-11-09] MEDS: MULTIVITAMINS THERAPEUTIC TAB GTB (08:37)
[2017-11-09] MEDS: POTASSIUM CHLORIDE 20 MEQ POWDER FOR ORAL SOLN GTB (08:37)
[2017-11-09] MEDS: ASCORBIC ACID 500 MG TAB GTB ×2 (08:37→20:43)
[2017-11-09] MEDS: CHOLECALCIFEROL 1,000 UNIT TAB GTB (08:38)
[2017-11-09] MEDS: MUPIROCIN 2% 22 GM OINT TOP ×2 (08:39→20:43)
[2017-11-09] MEDS: ATORVASTATIN 40 MG TAB GTB (20:43)
[2017-11-10] MEDS: VANCOMYCIN HCL 250 MG/5ML POSYG GTB ×5 (00:37→23:42)
[2017-11-10] MEDS: metroNIDAZOLE 500 MG/NS (PMX) 100 ML IVPB ×5 (00:37→23:42)
[2017-11-10] MEDS: LEVOTHYROXINE 25 MCG TAB GTB ×2 (05:31→06:19)
[2017-11-10 06:44] LABS: ANION GAP 10 (8-16); BLOOD UREA NITROGEN 17 mg/dl (7-20); CALCIUM 8.6 mg/dl (8.4-10.2); CARBON DIOXIDE 29 mmol/L (21-31); CHLORIDE 103 mmol/L (97-110); CREATININE 0.58 mg/dl (0.44-1.00); GLUCOSE 103 mg/dl (70-220); SODIUM 138 mmol/L (135-144)
[2017-11-10] MEDS: DONEPEZIL 5 MG TAB GTB (08:40)
[2017-11-10] MEDS: POTASSIUM CHLORIDE 20 MEQ POWDER FOR ORAL SOLN GTB (08:41)
[2017-11-10] MEDS: FERROUS SULFATE 60 MG/ML 5ML CUP GTB ×2 (08:41→20:53)
[2017-11-10] MEDS: MEMANTINE 10 MG TAB GTB ×2 (08:41→20:53)
[2017-11-10] MEDS: ASCORBIC ACID 500 MG TAB GTB ×2 (08:41→20:53)
[2017-11-10] MEDS: MULTIVITAMINS THERAPEUTIC TAB GTB (08:41)
[2017-11-10] MEDS: MUPIROCIN 2% 22 GM OINT TOP (08:42)
[2017-11-10] MEDS: CHOLECALCIFEROL 1,000 UNIT TAB GTB (08:42)
[2017-11-10] MEDS: ATORVASTATIN 40 MG TAB GTB (20:53)
[2017-11-11] MEDS: metroNIDAZOLE 500 MG/NS (PMX) 100 ML IVPB ×3 (05:18→17:27)
[2017-11-11] MEDS: VANCOMYCIN HCL 250 MG/5ML POSYG GTB ×3 (05:18→17:26)
[2017-11-11] MEDS: LEVOTHYROXINE 25 MCG TAB GTB (06:09)
[2017-11-11 06:43] LABS: ANION GAP 11 (8-16); BLOOD UREA NITROGEN 18 mg/dl (7-20); CALCIUM 8.8 mg/dl (8.4-10.2); CARBON DIOXIDE 30 mmol/L (21-31); CHLORIDE 104 mmol/L (97-110); CREATININE 0.54 mg/dl (0.44-1.00); GLUCOSE 106 mg/dl (70-220); POTASSIUM 3.9 mmol/L (3.5-5.1); SODIUM 141 mmol/L (135-144)
[2017-11-11] MEDS: MULTIVITAMINS THERAPEUTIC TAB GTB (08:27)
[2017-11-11] MEDS: ASCORBIC ACID 500 MG TAB GTB ×2 (08:27→21:36)
[2017-11-11] MEDS: POTASSIUM CHLORIDE 20 MEQ POWDER FOR ORAL SOLN GTB (08:27)
[2017-11-11] MEDS: FERROUS SULFATE 60 MG/ML 5ML CUP GTB ×2 (08:27→21:35)
[2017-11-11] MEDS: CHOLECALCIFEROL 1,000 UNIT TAB GTB (08:27)
[2017-11-11] MEDS: MEMANTINE 10 MG TAB GTB ×2 (08:27→21:36)
[2017-11-11] MEDS: DONEPEZIL 5 MG TAB GTB (08:28)
[2017-11-11] MEDS: RIFAXIMIN 550 MG TAB PO ×2 (11:42→21:35)
[2017-11-11 14:14] LABS: ADD MAN DIFF? NO
[2017-11-11 14:17] LABS: BASOPHIL # 0.1 10^3/ul (0.0-0.1); HEMATOCRIT 29.1 % (37.0-47.0); HEMOGLOBIN 9.5 g/dl (12.0-16.0); LYMPHOCYTES # 1.7 10^3/ul (0.8-2.9); LYMPHOCYTES % 20.4 % (15.0-51.0); MEAN CORPUSCULAR HEMOGLOBIN 31.3 pg (29.0-33.0); MEAN CORPUSCULAR HGB CONC 32.6 g/dl (32.0-37.0); MEAN CORPUSCULAR VOLUME 95.7 fl (82.0-101.0); MONOCYTE # 0.8 10^3/ul (0.3-0.9); MONOCYTES % 9.9 % (0.0-11.0); NEUTROPHIL # 5.7 10^3/ul (1.6-7.5); NEUTROPHILS % 68.3 % (39.0-77.0); PLATELET COUNT 349 10^3/UL (140-415); RED BLOOD COUNT 3.04 10^6/ul (4.20-5.40); RED CELL DISTRIBUTION WIDTH 15.8 % (11.5-14.5)
[2017-11-11 14:17] LABS: WHITE BLOOD COUNT 8.4 10^3/ul (4.8-10.8)
[2017-11-11] MEDS: CHOLESTYRAMINE 4 GM PACKET PO (21:35)
[2017-11-11] MEDS: ATORVASTATIN 40 MG TAB GTB (21:36)
[2017-11-12] MEDS: VANCOMYCIN HCL 250 MG/5ML POSYG GTB ×5 (00:22→23:40)
[2017-11-12] MEDS: metroNIDAZOLE 500 MG/NS (PMX) 100 ML IVPB ×2 (00:22→05:42)
[2017-11-12] MEDS: LEVOTHYROXINE 25 MCG TAB GTB (06:14)
[2017-11-12 07:02] LABS: BLOOD UREA NITROGEN 21 mg/dl (7-20); CARBON DIOXIDE 27 mmol/L (21-31); CHLORIDE 104 mmol/L (97-110); CREATININE 0.55 mg/dl (0.44-1.00); GLUCOSE 90 mg/dl (70-220); SODIUM 138 mmol/L (135-144)
[2017-11-12 07:06] LABS: ANION GAP 11 (8-16); POTASSIUM 4.3 mmol/L (3.5-5.1)
[2017-11-12] MEDS: FERROUS SULFATE 60 MG/ML 5ML CUP GTB ×2 (08:31→20:34)
[2017-11-12] MEDS: POTASSIUM CHLORIDE 20 MEQ POWDER FOR ORAL SOLN GTB (08:32)
[2017-11-12] MEDS: CHOLECALCIFEROL 1,000 UNIT TAB GTB (08:32)
[2017-11-12] MEDS: RIFAXIMIN 550 MG TAB PO ×2 (08:33→20:35)
[2017-11-12] MEDS: MEMANTINE 10 MG TAB GTB ×2 (08:33→20:34)
[2017-11-12] MEDS: DONEPEZIL 5 MG TAB GTB (08:33)
[2017-11-12] MEDS: CHOLESTYRAMINE 4 GM PACKET PO ×2 (08:33→20:35)
[2017-11-12] MEDS: MULTIVITAMINS THERAPEUTIC TAB GTB (08:33)
[2017-11-12] MEDS: ASCORBIC ACID 500 MG TAB GTB ×2 (08:33→20:34)
[2017-11-12] MEDS: ATORVASTATIN 40 MG TAB GTB (20:34)
[2017-11-13] MEDS: LEVOTHYROXINE 25 MCG TAB GTB (06:00)
[2017-11-13] MEDS: VANCOMYCIN HCL 250 MG/5ML POSYG GTB ×3 (06:00→17:57)
[2017-11-13] MEDS: FERROUS SULFATE 60 MG/ML 5ML CUP GTB ×2 (09:59→20:49)
[2017-11-13] MEDS: CHOLESTYRAMINE 4 GM PACKET PO ×2 (09:59→20:49)
[2017-11-13] MEDS: CHOLECALCIFEROL 1,000 UNIT TAB GTB (09:59)
[2017-11-13] MEDS: POTASSIUM CHLORIDE 20 MEQ POWDER FOR ORAL SOLN GTB (09:59)
[2017-11-13] MEDS: ASCORBIC ACID 500 MG TAB GTB ×2 (10:00→20:49)
[2017-11-13] MEDS: DONEPEZIL 5 MG TAB GTB (10:00)
[2017-11-13] MEDS: MULTIVITAMINS THERAPEUTIC TAB GTB (10:00)
[2017-11-13] MEDS: MEMANTINE 10 MG TAB GTB ×2 (10:00→20:49)
[2017-11-13] MEDS: RIFAXIMIN 550 MG TAB PO ×2 (10:01→20:49)
[2017-11-13] MEDS: ATORVASTATIN 40 MG TAB GTB (20:49)
[2017-11-14] MEDS: VANCOMYCIN HCL 250 MG/5ML POSYG GTB ×4 (00:07→17:32)
[2017-11-14 05:46] LABS: ADD MAN DIFF? NO
[2017-11-14 05:57] LABS: WHITE BLOOD COUNT 7.6 10^3/ul (4.8-10.8)
[2017-11-14 05:57] LABS: BASOPHIL # 0.1 10^3/ul (0.0-0.1); BASOPHILS % 0.8 % (0.0-2.0); HEMATOCRIT 29.9 % (37.0-47.0); HEMOGLOBIN 9.9 g/dl (12.0-16.0); LYMPHOCYTES # 1.8 10^3/ul (0.8-2.9); LYMPHOCYTES % 23.6 % (15.0-51.0); MEAN CORPUSCULAR HEMOGLOBIN 31.5 pg (29.0-33.0); MEAN CORPUSCULAR HGB CONC 33.1 g/dl (32.0-37.0); MEAN CORPUSCULAR VOLUME 95.2 fl (82.0-101.0); MEAN PLATELET VOLUME 9.9 fl (7.4-10.4); MONOCYTE # 0.7 10^3/ul (0.3-0.9); NEUTROPHIL # 5.1 10^3/ul (1.6-7.5); NEUTROPHILS % 66.5 % (39.0-77.0); PLATELET COUNT 343 10^3/UL (140-415); RED BLOOD COUNT 3.14 10^6/ul (4.20-5.40); RED CELL DISTRIBUTION WIDTH 15.2 % (11.5-14.5)
[2017-11-14] MEDS: LEVOTHYROXINE 25 MCG TAB GTB (05:59)
[2017-11-14 06:15] LABS: ANION GAP 13 (8-16); BLOOD UREA NITROGEN 20 mg/dl (7-20); CALCIUM 8.7 mg/dl (8.4-10.2); CARBON DIOXIDE 27 mmol/L (21-31); CHLORIDE 105 mmol/L (97-110); CREATININE 0.58 mg/dl (0.44-1.00); GLUCOSE 89 mg/dl (70-220); POTASSIUM 4.2 mmol/L (3.5-5.1); SODIUM 141 mmol/L (135-144)
[2017-11-14] MEDS: FERROUS SULFATE 60 MG/ML 5ML CUP GTB ×2 (09:01→20:22)
[2017-11-14] MEDS: MULTIVITAMINS THERAPEUTIC TAB GTB (09:02)
[2017-11-14] MEDS: RIFAXIMIN 550 MG TAB PO ×2 (09:02→20:22)
[2017-11-14] MEDS: CHOLECALCIFEROL 1,000 UNIT TAB GTB (09:02)
[2017-11-14] MEDS: POTASSIUM CHLORIDE 20 MEQ POWDER FOR ORAL SOLN GTB (09:02)
[2017-11-14] MEDS: ASCORBIC ACID 500 MG TAB GTB ×2 (09:03→20:23)
[2017-11-14] MEDS: DONEPEZIL 5 MG TAB GTB (09:03)
[2017-11-14] MEDS: MEMANTINE 10 MG TAB GTB ×2 (09:03→20:23)
[2017-11-14] MEDS: CHOLESTYRAMINE 4 GM PACKET PO ×2 (09:09→20:23)
[2017-11-14] MEDS: ATORVASTATIN 40 MG TAB GTB (20:22)
[2017-11-15 06:04] LABS: ADD MAN DIFF? NO
[2017-11-15 06:08] LABS: BASOPHIL # 0.1 10^3/ul (0.0-0.1); HEMATOCRIT 28.6 % (37.0-47.0); HEMOGLOBIN 9.6 g/dl (12.0-16.0); LYMPHOCYTES # 1.9 10^3/ul (0.8-2.9); LYMPHOCYTES % 23.9 % (15.0-51.0); MEAN CORPUSCULAR HEMOGLOBIN 31.9 pg (29.0-33.0); MEAN CORPUSCULAR HGB CONC 33.6 g/dl (32.0-37.0); MEAN PLATELET VOLUME 9.9 fl (7.4-10.4); MONOCYTE # 0.7 10^3/ul (0.3-0.9); MONOCYTES % 8.8 % (0.0-11.0); NEUTROPHIL # 5.3 10^3/ul (1.6-7.5); NEUTROPHILS % 66.2 % (39.0-77.0); PLATELET COUNT 343 10^3/UL (140-415); RED BLOOD COUNT 3.01 10^6/ul (4.20-5.40); RED CELL DISTRIBUTION WIDTH 15.5 % (11.5-14.5)
[2017-11-15] MEDS: VANCOMYCIN HCL 250 MG/5ML POSYG GTB ×3 (06:14→22:45)
[2017-11-15] MEDS: LEVOTHYROXINE 25 MCG TAB GTB (06:15)
[2017-11-15 06:32] LABS: ANION GAP 14 (8-16); BLOOD UREA NITROGEN 23 mg/dl (7-20); CALCIUM 8.9 mg/dl (8.4-10.2); CARBON DIOXIDE 26 mmol/L (21-31); CHLORIDE 105 mmol/L (97-110); GLUCOSE 94 mg/dl (70-220); POTASSIUM 4.5 mmol/L (3.5-5.1); SODIUM 140 mmol/L (135-144)
[2017-11-15] MEDS: CHOLESTYRAMINE 4 GM PACKET PO ×2 (08:22→20:41)
[2017-11-15] MEDS: ASCORBIC ACID 500 MG TAB GTB ×2 (08:22→20:42)
[2017-11-15] MEDS: MEMANTINE 10 MG TAB GTB ×2 (08:22→20:41)
[2017-11-15] MEDS: CHOLECALCIFEROL 1,000 UNIT TAB GTB (08:22)
[2017-11-15] MEDS: MULTIVITAMINS THERAPEUTIC TAB GTB (08:22)
[2017-11-15] MEDS: POTASSIUM CHLORIDE 20 MEQ POWDER FOR ORAL SOLN GTB (08:23)
[2017-11-15] MEDS: RIFAXIMIN 550 MG TAB PO ×2 (08:23→20:41)
[2017-11-15] MEDS: DONEPEZIL 5 MG TAB GTB (08:25)
[2017-11-15] MEDS: FERROUS SULFATE 60 MG/ML 5ML CUP GTB ×2 (08:25→20:42)
[2017-11-15] MEDS: ATORVASTATIN 40 MG TAB GTB (20:41)
[2017-11-16 06:07] LABS: ADD MAN DIFF? NO
[2017-11-16] MEDS: VANCOMYCIN HCL 250 MG/5ML POSYG GTB ×3 (06:12→21:51)
[2017-11-16] MEDS: LEVOTHYROXINE 25 MCG TAB GTB (06:12)
[2017-11-16 06:21] LABS: WHITE BLOOD COUNT 8.4 10^3/ul (4.8-10.8)
[2017-11-16 06:21] LABS: BASOPHIL # 0.1 10^3/ul (0.0-0.1); BASOPHILS % 0.8 % (0.0-2.0); HEMATOCRIT 30.4 % (37.0-47.0); HEMOGLOBIN 9.9 g/dl (12.0-16.0); LYMPHOCYTES # 1.9 10^3/ul (0.8-2.9); LYMPHOCYTES % 22.2 % (15.0-51.0); MEAN CORPUSCULAR HGB CONC 32.6 g/dl (32.0-37.0); MEAN CORPUSCULAR VOLUME 98.4 fl (82.0-101.0); MONOCYTE # 0.7 10^3/ul (0.3-0.9); MONOCYTES % 8.7 % (0.0-11.0); NEUTROPHIL # 5.7 10^3/ul (1.6-7.5); NEUTROPHILS % 68.1 % (39.0-77.0); PLATELET COUNT 323 10^3/UL (140-415); RED BLOOD COUNT 3.09 10^6/ul (4.20-5.40); RED CELL DISTRIBUTION WIDTH 15.2 % (11.5-14.5)
[2017-11-16 06:55] LABS: ANION GAP 11 (8-16); BLOOD UREA NITROGEN 25 mg/dl (7-20); CARBON DIOXIDE 32 mmol/L (21-31); CHLORIDE 103 mmol/L (97-110); CREATININE 0.65 mg/dl (0.44-1.00); GLUCOSE 96 mg/dl (70-220); POTASSIUM 4.6 mmol/L (3.5-5.1); SODIUM 141 mmol/L (135-144)
[2017-11-16] MEDS: CHOLESTYRAMINE 4 GM PACKET PO ×2 (09:54→21:52)
[2017-11-16] MEDS: RIFAXIMIN 550 MG TAB PO ×2 (09:54→21:52)
[2017-11-16] MEDS: MEMANTINE 10 MG TAB GTB ×2 (09:54→21:52)
[2017-11-16] MEDS: MULTIVITAMINS THERAPEUTIC TAB GTB (09:54)
[2017-11-16] MEDS: FERROUS SULFATE 60 MG/ML 5ML CUP GTB ×2 (09:54→21:51)
[2017-11-16] MEDS: CHOLECALCIFEROL 1,000 UNIT TAB GTB (09:54)
[2017-11-16] MEDS: ASCORBIC ACID 500 MG TAB GTB ×2 (09:54→21:52)
[2017-11-16] MEDS: DONEPEZIL 5 MG TAB GTB (09:54)
[2017-11-16] MEDS: POTASSIUM CHLORIDE 20 MEQ POWDER FOR ORAL SOLN GTB (09:54)
[2017-11-16] MEDS: ATORVASTATIN 40 MG TAB GTB (21:52)
[2017-11-17] MEDS: LEVOTHYROXINE 25 MCG TAB GTB (05:44)
[2017-11-17] MEDS: VANCOMYCIN HCL 250 MG/5ML POSYG GTB ×3 (05:44→21:00)
[2017-11-17] MEDS: CHOLESTYRAMINE 4 GM PACKET PO ×2 (09:44→20:58)
[2017-11-17] MEDS: POTASSIUM CHLORIDE 20 MEQ POWDER FOR ORAL SOLN GTB (09:44)
[2017-11-17] MEDS: CHOLECALCIFEROL 1,000 UNIT TAB GTB (09:44)
[2017-11-17] MEDS: FERROUS SULFATE 60 MG/ML 5ML CUP GTB ×2 (09:44→20:58)
[2017-11-17] MEDS: MEMANTINE 10 MG TAB GTB ×2 (09:45→20:58)
[2017-11-17] MEDS: ASCORBIC ACID 500 MG TAB GTB ×2 (09:45→20:58)
[2017-11-17] MEDS: DONEPEZIL 5 MG TAB GTB (09:45)
[2017-11-17] MEDS: MULTIVITAMINS THERAPEUTIC TAB GTB (09:45)
[2017-11-17] MEDS: RIFAXIMIN 550 MG TAB PO ×2 (09:45→20:58)
[2017-11-17] MEDS: ATORVASTATIN 40 MG TAB GTB (20:58)
[2017-11-18] MEDS: LEVOTHYROXINE 25 MCG TAB GTB (06:03)
[2017-11-18] MEDS: VANCOMYCIN HCL 250 MG/5ML POSYG GTB ×3 (06:06→23:48)
[2017-11-18 06:07] LABS: ADD MAN DIFF? NO
[2017-11-18 06:24] LABS: BASOPHIL # 0.1 10^3/ul (0.0-0.1); HEMATOCRIT 30.7 % (37.0-47.0); HEMOGLOBIN 10.1 g/dl (12.0-16.0); LYMPHOCYTES # 1.4 10^3/ul (0.8-2.9); MEAN CORPUSCULAR HEMOGLOBIN 31.7 pg (29.0-33.0); MEAN CORPUSCULAR HGB CONC 32.9 g/dl (32.0-37.0); MEAN CORPUSCULAR VOLUME 96.2 fl (82.0-101.0); MEAN PLATELET VOLUME 10.2 fl (7.4-10.4); MONOCYTE # 0.6 10^3/ul (0.3-0.9); MONOCYTES % 9.1 % (0.0-11.0); NEUTROPHIL # 4.6 10^3/ul (1.6-7.5); NEUTROPHILS % 68.8 % (39.0-77.0); PLATELET COUNT 305 10^3/UL (140-415); RED BLOOD COUNT 3.19 10^6/ul (4.20-5.40); RED CELL DISTRIBUTION WIDTH 14.9 % (11.5-14.5)
[2017-11-18 06:24] LABS: WHITE BLOOD COUNT 6.7 10^3/ul (4.8-10.8)
[2017-11-18 06:56] LABS: ANION GAP 12 (8-16); BLOOD UREA NITROGEN 25 mg/dl (7-20); CALCIUM 8.8 mg/dl (8.4-10.2); CARBON DIOXIDE 29 mmol/L (21-31); CHLORIDE 103 mmol/L (97-110); GLUCOSE 105 mg/dl (70-220); POTASSIUM 4.4 mmol/L (3.5-5.1); SODIUM 140 mmol/L (135-144)
[2017-11-18] MEDS: POTASSIUM CHLORIDE 20 MEQ POWDER FOR ORAL SOLN GTB (09:37)
[2017-11-18] MEDS: CHOLESTYRAMINE 4 GM PACKET PO ×2 (09:37→20:24)
[2017-11-18] MEDS: MULTIVITAMINS THERAPEUTIC TAB GTB (09:38)
[2017-11-18] MEDS: MEMANTINE 10 MG TAB GTB ×2 (09:38→20:24)
[2017-11-18] MEDS: FERROUS SULFATE 60 MG/ML 5ML CUP GTB ×2 (09:38→20:24)
[2017-11-18] MEDS: DONEPEZIL 5 MG TAB GTB (09:38)
[2017-11-18] MEDS: RIFAXIMIN 550 MG TAB PO ×2 (09:38→20:24)
[2017-11-18] MEDS: ASCORBIC ACID 500 MG TAB GTB ×2 (09:38→20:24)
[2017-11-18] MEDS: CHOLECALCIFEROL 1,000 UNIT TAB GTB (09:38)
[2017-11-18] MEDS: ATORVASTATIN 40 MG TAB GTB (20:24)
[2017-11-19 06:25] LABS: ADD MAN DIFF? NO
[2017-11-19 06:31] LABS: BASOPHIL # 0.1 10^3/ul (0.0-0.1); BASOPHILS % 1.1 % (0.0-2.0); HEMATOCRIT 31.3 % (37.0-47.0); HEMOGLOBIN 10.1 g/dl (12.0-16.0); LYMPHOCYTES # 1.6 10^3/ul (0.8-2.9); MEAN CORPUSCULAR HEMOGLOBIN 31.3 pg (29.0-33.0); MEAN CORPUSCULAR HGB CONC 32.3 g/dl (32.0-37.0); MEAN CORPUSCULAR VOLUME 96.9 fl (82.0-101.0); MEAN PLATELET VOLUME 10.3 fl (7.4-10.4); MONOCYTE # 0.6 10^3/ul (0.3-0.9); MONOCYTES % 9.3 % (0.0-11.0); NEUTROPHIL # 4.2 10^3/ul (1.6-7.5); NEUTROPHILS % 65.4 % (39.0-77.0); PLATELET COUNT 319 10^3/UL (140-415); RED BLOOD COUNT 3.23 10^6/ul (4.20-5.40); RED CELL DISTRIBUTION WIDTH 15.2 % (11.5-14.5)
[2017-11-19 06:31] LABS: WHITE BLOOD COUNT 6.5 10^3/ul (4.8-10.8)
[2017-11-19] MEDS: LEVOTHYROXINE 25 MCG TAB GTB (06:31)
[2017-11-19] MEDS: VANCOMYCIN HCL 250 MG/5ML POSYG GTB ×3 (06:46→22:12)
[2017-11-19 07:00] LABS: ANION GAP 16 (8-16); BLOOD UREA NITROGEN 25 mg/dl (7-20); CALCIUM 9.2 mg/dl (8.4-10.2); CARBON DIOXIDE 28 mmol/L (21-31); CHLORIDE 104 mmol/L (97-110); CREATININE 0.63 mg/dl (0.44-1.00); GLUCOSE 84 mg/dl (70-220); POTASSIUM 4.2 mmol/L (3.5-5.1); SODIUM 144 mmol/L (135-144)
[2017-11-19] MEDS: POTASSIUM CHLORIDE 20 MEQ POWDER FOR ORAL SOLN GTB (09:12)
[2017-11-19] MEDS: CHOLESTYRAMINE 4 GM PACKET PO ×2 (09:12→20:14)
[2017-11-19] MEDS: FERROUS SULFATE 60 MG/ML 5ML CUP GTB ×2 (09:12→20:14)
[2017-11-19] MEDS: RIFAXIMIN 550 MG TAB PO ×2 (09:12→20:14)
[2017-11-19] MEDS: MEMANTINE 10 MG TAB GTB ×2 (09:12→20:14)
[2017-11-19] MEDS: ASCORBIC ACID 500 MG TAB GTB ×2 (09:12→20:14)
[2017-11-19] MEDS: MULTIVITAMINS THERAPEUTIC TAB GTB (09:13)
[2017-11-19] MEDS: CHOLECALCIFEROL 1,000 UNIT TAB GTB (09:13)
[2017-11-19] MEDS: DONEPEZIL 5 MG TAB GTB (09:13)
[2017-11-19] MEDS: ATORVASTATIN 40 MG TAB GTB (20:14)
[2017-11-20 05:54] LABS: ADD MAN DIFF? NO
[2017-11-20 05:56] LABS: WHITE BLOOD COUNT 6.2 10^3/ul (4.8-10.8)
[2017-11-20 05:56] LABS: BASOPHIL # 0.1 10^3/ul (0.0-0.1); LYMPHOCYTES # 1.3 10^3/ul (0.8-2.9); LYMPHOCYTES % 21.1 % (15.0-51.0); MEAN CORPUSCULAR HEMOGLOBIN 30.9 pg (29.0-33.0); MEAN CORPUSCULAR HGB CONC 32.3 g/dl (32.0-37.0); MEAN CORPUSCULAR VOLUME 95.7 fl (82.0-101.0); MEAN PLATELET VOLUME 10.2 fl (7.4-10.4); MONOCYTE # 0.6 10^3/ul (0.3-0.9); NEUTROPHIL # 4.2 10^3/ul (1.6-7.5); NEUTROPHILS % 67.7 % (39.0-77.0); PLATELET COUNT 281 10^3/UL (140-415); RED BLOOD COUNT 3.24 10^6/ul (4.20-5.40); RED CELL DISTRIBUTION WIDTH 14.6 % (11.5-14.5)
[2017-11-20] MEDS: VANCOMYCIN HCL 250 MG/5ML POSYG GTB ×3 (06:03→22:41)
[2017-11-20] MEDS: LEVOTHYROXINE 25 MCG TAB GTB (06:03)
[2017-11-20 06:27] LABS: ANION GAP 17 (8-16); BLOOD UREA NITROGEN 25 mg/dl (7-20); CALCIUM 9.2 mg/dl (8.4-10.2); CARBON DIOXIDE 26 mmol/L (21-31); CHLORIDE 104 mmol/L (97-110); CREATININE 0.55 mg/dl (0.44-1.00); GLUCOSE 96 mg/dl (70-220); POTASSIUM 4.5 mmol/L (3.5-5.1); SODIUM 142 mmol/L (135-144)
[2017-11-20] MEDS: CHOLECALCIFEROL 1,000 UNIT TAB GTB (09:06)
[2017-11-20] MEDS: ASCORBIC ACID 500 MG TAB GTB ×2 (09:07→20:49)
[2017-11-20] MEDS: DONEPEZIL 5 MG TAB GTB (09:07)
[2017-11-20] MEDS: POTASSIUM CHLORIDE 20 MEQ POWDER FOR ORAL SOLN GTB (09:07)
[2017-11-20] MEDS: MULTIVITAMINS THERAPEUTIC TAB GTB (09:07)
[2017-11-20] MEDS: CHOLESTYRAMINE 4 GM PACKET PO ×2 (09:07→20:49)
[2017-11-20] MEDS: FERROUS SULFATE 60 MG/ML 5ML CUP GTB ×2 (09:07→20:49)
[2017-11-20] MEDS: RIFAXIMIN 550 MG TAB PO ×2 (09:07→20:49)
[2017-11-20] MEDS: MEMANTINE 10 MG TAB GTB ×2 (09:07→20:49)
[2017-11-20] MEDS: ATORVASTATIN 40 MG TAB GTB (20:49)
[2017-11-21] MEDS: LEVOTHYROXINE 25 MCG TAB GTB (05:35)
[2017-11-21] MEDS: VANCOMYCIN HCL 250 MG/5ML POSYG GTB ×3 (05:35→21:28)
[2017-11-21 05:36] LABS: ADD MAN DIFF? NO
[2017-11-21 05:42] LABS: WHITE BLOOD COUNT 6.6 10^3/ul (4.8-10.8)
[2017-11-21 05:42] LABS: BASOPHIL # 0.1 10^3/ul (0.0-0.1); BASOPHILS % 0.9 % (0.0-2.0); HEMOGLOBIN 10.3 g/dl (12.0-16.0); LYMPHOCYTES # 1.2 10^3/ul (0.8-2.9); LYMPHOCYTES % 17.8 % (15.0-51.0); MEAN CORPUSCULAR HEMOGLOBIN 31.3 pg (29.0-33.0); MEAN CORPUSCULAR HGB CONC 32.2 g/dl (32.0-37.0); MEAN CORPUSCULAR VOLUME 97.3 fl (82.0-101.0); MEAN PLATELET VOLUME 10.1 fl (7.4-10.4); MONOCYTE # 0.6 10^3/ul (0.3-0.9); MONOCYTES % 9.7 % (0.0-11.0); NEUTROPHIL # 4.7 10^3/ul (1.6-7.5); NEUTROPHILS % 71.4 % (39.0-77.0); PLATELET COUNT 299 10^3/UL (140-415); RED BLOOD COUNT 3.29 10^6/ul (4.20-5.40); RED CELL DISTRIBUTION WIDTH 14.6 % (11.5-14.5)
[2017-11-21 06:35] LABS: ANION GAP 15 (8-16); BLOOD UREA NITROGEN 22 mg/dl (7-20); CALCIUM 9.3 mg/dl (8.4-10.2); CARBON DIOXIDE 29 mmol/L (21-31); CHLORIDE 105 mmol/L (97-110); CREATININE 0.59 mg/dl (0.44-1.00); GLUCOSE 100 mg/dl (70-220); POTASSIUM 4.1 mmol/L (3.5-5.1); SODIUM 145 mmol/L (135-144)
[2017-11-21] MEDS: RIFAXIMIN 550 MG TAB PO ×2 (08:52→21:28)
[2017-11-21] MEDS: POTASSIUM CHLORIDE 20 MEQ POWDER FOR ORAL SOLN GTB (08:52)
[2017-11-21] MEDS: CHOLECALCIFEROL 1,000 UNIT TAB GTB (08:52)
[2017-11-21] MEDS: CHOLESTYRAMINE 4 GM PACKET PO ×2 (08:52→21:28)
[2017-11-21] MEDS: MULTIVITAMINS THERAPEUTIC TAB GTB (08:53)
[2017-11-21] MEDS: MEMANTINE 10 MG TAB GTB ×2 (08:53→21:28)
[2017-11-21] MEDS: ASCORBIC ACID 500 MG TAB GTB ×2 (08:53→21:28)
[2017-11-21] MEDS: DONEPEZIL 5 MG TAB GTB (08:53)
[2017-11-21] MEDS: FERROUS SULFATE 60 MG/ML 5ML CUP GTB ×2 (08:53→21:27)
[2017-11-21] MEDS: ATORVASTATIN 40 MG TAB GTB (21:28)
[2017-11-22] MEDS: LEVOTHYROXINE 25 MCG TAB GTB (06:35)
[2017-11-22 07:43] LABS: ANION GAP 14 (8-16); BLOOD UREA NITROGEN 24 mg/dl (7-20); CALCIUM 9.2 mg/dl (8.4-10.2); CARBON DIOXIDE 29 mmol/L (21-31); CHLORIDE 105 mmol/L (97-110); CREATININE 0.64 mg/dl (0.44-1.00); GLUCOSE 98 mg/dl (70-220); POTASSIUM 4.2 mmol/L (3.5-5.1); SODIUM 144 mmol/L (135-144)
[2017-11-22] MEDS: POTASSIUM CHLORIDE 20 MEQ POWDER FOR ORAL SOLN GTB (09:59)
[2017-11-22] MEDS: ASCORBIC ACID 500 MG TAB GTB ×2 (09:59→20:17)
[2017-11-22] MEDS: CHOLESTYRAMINE 4 GM PACKET PO ×2 (09:59→20:18)
[2017-11-22] MEDS: DONEPEZIL 5 MG TAB GTB (09:59)
[2017-11-22] MEDS: RIFAXIMIN 550 MG TAB PO ×2 (09:59→20:17)
[2017-11-22] MEDS: FERROUS SULFATE 60 MG/ML 5ML CUP GTB ×2 (09:59→20:17)
[2017-11-22] MEDS: CHOLECALCIFEROL 1,000 UNIT TAB GTB (09:59)
[2017-11-22] MEDS: MULTIVITAMINS THERAPEUTIC TAB GTB (10:00)
[2017-11-22] MEDS: MEMANTINE 10 MG TAB GTB ×2 (10:00→20:17)
[2017-11-22] MEDS: ATORVASTATIN 40 MG TAB GTB (20:17)
[2017-11-22] MEDS: VANCOMYCIN HCL 250 MG/5ML POSYG PO (20:20)
[2017-11-23] MEDS: LEVOTHYROXINE 25 MCG TAB GTB (06:23)
[2017-11-23] MEDS: DONEPEZIL 5 MG TAB GTB (10:24)
[2017-11-23] MEDS: CHOLESTYRAMINE 4 GM PACKET PO (10:24)
[2017-11-23] MEDS: RIFAXIMIN 550 MG TAB PO (10:24)
[2017-11-23] MEDS: ASCORBIC ACID 500 MG TAB GTB (10:24)
[2017-11-23] MEDS: MEMANTINE 10 MG TAB GTB (10:24)
[2017-11-23] MEDS: VANCOMYCIN HCL 250 MG/5ML POSYG PO (10:24)
[2017-11-23] MEDS: MULTIVITAMINS THERAPEUTIC TAB GTB (10:24)
[2017-11-23] MEDS: FERROUS SULFATE 60 MG/ML 5ML CUP GTB (10:24)
[2017-11-23] MEDS: CHOLECALCIFEROL 1,000 UNIT TAB GTB (10:25)
[2017-11-23] MEDS: POTASSIUM CHLORIDE 20 MEQ POWDER FOR ORAL SOLN GTB (10:25)
== END 2017-11-23 17:25 | disposition home health service (06) | DRG 389 ==
LOC: TEL 10-30 14:24 → E/R 22:18 → MS2 11-01 19:03
PROVIDERS: Internal Medicine
DX: K56.7 Ileus, unspecified (principal); N17.9 Acute kidney failure, unspecified; E87.0 Hyperosmolality and hypernatremia; A04.72 Enterocolitis due to Clostridium difficile, not specified as recurrent; E44.1 Mild protein-calorie malnutrition; J44.9 Chronic obstructive pulmonary disease, unspecified; R13.10 Dysphagia, unspecified; F03.90 Unspecified dementia, unspecified severity, without behavioral disturbance, psychotic disturbance, mood disturbance, and anxiety; Z93.1 Gastrostomy status; E86.0 Dehydration; Z68.23 Body mass index [BMI] 23.0-23.9, adult; I10 Essential (primary) hypertension; E78.5 Hyperlipidemia, unspecified; E03.9 Hypothyroidism, unspecified; E87.6 Hypokalemia; D64.9 Anemia, unspecified; R32 Unspecified urinary incontinence; Z22.322 Carrier or suspected carrier of Methicillin resistant Staphylococcus aureus
CPT/HCPCS: 36415; 71045; 74018; 74177; 80048; 80053; 81001; 81003; 83605; 83690; 83735; 84439; 84443; 84484; 85025; 87040; 87075; 87081; 87086; 93005; 96360; 96361; 97110; 97163; 97530; 99285-25

== ENCOUNTER 2017-12-17 02:53 | Emergency (ER) | payer MEDICARE, MEDICAID, OTHER ==
[2017-12-17] MEDS ORDERED: morphine 2 MG INJ IV (04:13)
[2017-12-17] MEDS: SOD CHLORIDE 0.9% 500 ML IV (04:13)
[2017-12-17 06:07] LABS: WHITE BLOOD COUNT 10.7 10^3/ul (4.8-10.8)
[2017-12-17 06:07] LABS: ADD MAN DIFF? NO; BASOPHILS % 0.4 % (0.0-2.0); HEMATOCRIT 34.3 % (37.0-47.0); HEMOGLOBIN 11.5 g/dl (12.0-16.0); LYMPHOCYTES % 18.3 % (15.0-51.0); MEAN CORPUSCULAR HGB CONC 33.5 g/dl (32.0-37.0); MEAN CORPUSCULAR VOLUME 95.5 fl (82.0-101.0); MONOCYTE # 0.7 10^3/ul (0.3-0.9); MONOCYTES % 6.2 % (0.0-11.0); NEUTROPHILS % 74.7 % (39.0-77.0); PLATELET COUNT 388 10^3/UL (140-415); RED BLOOD COUNT 3.59 10^6/ul (4.20-5.40); RED CELL DISTRIBUTION WIDTH 13.9 % (11.5-14.5)
[2017-12-17 06:27] LABS: ADD UMIC YES; UR ASCORBIC ACID 40 mg/dL (NEGATIVE); UR BILIRUBIN (Dip) NEGATIVE (NEGATIVE); UR BLOOD (Dip) NEGATIVE (NEGATIVE); UR CLARITY SLIGHTLY CLOUDY (CLEAR); UR COLOR YELLOW (YELLOW); UR GLUCOSE (Dip) NEGATIVE (NEGATIVE); UR KETONES (Dip) NEGATIVE (NEGATIVE); UR LEUKOCYTE ESTERASE (Dip) TRACE Leu/ul (NEGATIVE); UR NITRITE (Dip) NEGATIVE (NEGATIVE); UR RBC 3 /HPF (0-5); UR SPECIFIC GRAVITY (Dip) 1.023 (1.003-1.030); UR TOTAL PROTEIN (Dip) NEGATIVE (NEGATIVE); UR UROBILINOGEN (Dip) 1+ mg/dL (NEGATIVE); UR WBC 3 /HPF (0-5)
[2017-12-17 06:37] LABS: ALANINE AMINOTRANSFERASE 31 IU/L (13-69); ALBUMIN 3.8 g/dl (3.3-4.9); ALBUMIN/GLOBULIN RATIO 0.95; ALKALINE PHOSPHATASE 84 IU/L (42-121); ANION GAP 16 (8-16); ASPARTATE AMINO TRANSFERASE 34 IU/L (15-46); BILIRUBIN,INDIRECT 0.3 mg/dl (0-1.1); BILIRUBIN,TOTAL 0.3 mg/dl (0.2-1.3); BLOOD UREA NITROGEN 32 mg/dl (7-20); CALCIUM 9.1 mg/dl (8.4-10.2); CARBON DIOXIDE 30 mmol/L (21-31); CHLORIDE 109 mmol/L (97-110); CREATININE 0.73 mg/dl (0.44-1.00); GLUCOSE 102 mg/dl (70-220); LIPASE 56 U/L (23-300); POTASSIUM 3.3 mmol/L (3.5-5.1); SODIUM 152 mmol/L (135-144); TOTAL PROTEIN 7.8 g/dl (6.1-8.1)
[2017-12-17] MEDS ORDERED: POTASSIUM CHLORIDE (SR) 20 MEQ TAB PO (06:48)
== END 2017-12-17 10:14 | disposition home or self-care (01) ==
LOC: E/R 02:53
DX: R10.84 Generalized abdominal pain (principal); I10 Essential (primary) hypertension; J44.9 Chronic obstructive pulmonary disease, unspecified; G30.9 Alzheimer's disease, unspecified; R40.2132 Coma scale, eyes open, to sound, at arrival to emergency department; R40.2242 Coma scale, best verbal response, confused conversation, at arrival to emergency department
CPT/HCPCS: 36415; 74176; 80053; 81001; 83690; 85025; 87086; 99285-25